=== PATIENT | female | born 1945 | race Caucasian/White ===

== ENCOUNTER 2024-10-09 04:09 | Inpatient (IN) | payer OTHER, SELFPAY ==
[2024-10-09] VITALS (15 sets, daily range): BP systolic 96–142; BP diastolic 52–89; PULSE 82–108; RESP 13–28; TEMP 36.2–37.9; O2SAT 92–100; BMI 33.9; BMI 32.7
--- NOTE | 2024-10-09 | ECG_ITS ---
Test Reason : WEAKNESS Blood Pressure : */* mmHG Vent. Rate : 102 BPM Atrial Rate : 102 BPM P-R Int : 146 ms QRS Dur : 72 ms QT Int : 350 ms P-R-T Axes : 43 -6 69 degrees QTcB Int : 456 ms Sinus tachycardia Nonspecific T wave abnormality Abnormal ECG No previous ECGs available Referred By: Generic ED Physician Electronically Signed By: ELODIA BURK MD
--- NOTE | ~2024-10-09 | XR_ITS ---
EXAMINATION: XR CHEST 1 VIEW HISTORY: bacteremia? COMPARISON: Correlation is made with a CT of the abdomen performed earlier in the day. FINDINGS: A single AP portable view of the chest performed at 7:15 AM is submitted. An opacity at the right lung base was previously shown to represent a hiatal hernia on CT. The remainder of the lungs are clear. There is no pleural effusion, pneumothorax, or pulmonary vascular congestion. The heart is normal in size. The aorta is calcified. There is degenerative disc disease of the spine. XR/XR chest 1V IMPRESSION: Large hiatal hernia. No focal airspace opacity is identified. Electronically signed by: Giancarlo Johnson MD 10/09/2024 08:02 AM EDT RP
--- NOTE | ~2024-10-09 | CT_ITS ---
CLINICAL HISTORY: Upper abdominal pain etiology?? CT abdomen and pelvis without contrast Comparison: None Findings: No consolidation or effusion. There is a large hiatal hernia. The solid organs are within normal limits. There is a gallstone. The gallbladder is otherwise unremarkable. No renal stones. No bowel obstruction, pneumoperitoneum, or pneumatosis. Pelvic contents unremarkable. The appendix is not visualized with no imaging evidence of appendicitis There is a T10 vertebral body compression fracture, acuity indeterminate. IMPRESSION: 1. T10 vertebral body compression fracture, acuity indeterminate. If patient is felt to be a candidate for intervention such as augmentation procedure, consider MR to further evaluate. 2. Large hiatal hernia. This document has been electronically signed by: Camden Marinelli MD on 10/09/2024 07:02:43
[2024-10-09 04:52] LABS: Basophils Percent Auto 0.1 % (0-2); Hematocrit 29.7 % (37.0-47.0); Hemoglobin 10.1 g/dl (12.0-16.0); Imm Gran Abs Auto 0.18 X10*3/uL (0.00-0.03); Imm Gran Pct Auto 0.8 % (0.0-0.4); Lymphocytes Absolute Auto 1.5 X10*3/uL (1.2-4.9); Lymphocytes Percent Auto 6.8 % (20-40); MANUAL DIFF FLAG NO; Mean Corpuscular Hemoglobin 26.4 pg (27.0-33.0); Mean Corpuscular Volume 77.5 fL (80.0-98.0); Monocytes Absolute Auto 1.3 X10*3/uL (0.1-1.2); Monocytes Percent Auto 5.8 % (2-11); Neutrophils Absolute Auto 19.4 x10*3/uL (2.0-8.3); Neutrophils Percent Auto 86.5 % (45-73); Platelet Count 342 X10*3/uL (160-400); Red Blood Count 3.83 X10*6/uL (4.20-5.50); Red Cell Distribution Width 13.9 % (11.0-16.0); White Blood Count 22.4 X10*3/uL (4.8-10.8)
[2024-10-09 04:58] LABS: INTERNATIONAL NORM RATIO 1.1 (0.9-1.1); Prothrombin Time 12.9 SEC (10.9-12.4)
--- NOTE | 2024-10-09 05:05 | ED_ITS ---
HPI - General Adult General Chief complaint: GI Bleed Stated complaint: Vomiting dark black coffee grounds since Wednesday Time Seen by Provider: 10/09/24 05:05 Source: patient Mode of arrival: EMS Limitations: no limitations History of Present Illness ED Provider: HPI narrative: Patient's history of arthritis, hiatal hernia on Celebrex otherwise healthy no history of any abdominal complaints or ulcer been vomiting for last 2 days multiple times which is coffee colored with mild epigastric pain no diarrhea no melena no shortness a breath no fever does have some chills no urinary symptoms Related Data Allergies Allergy/AdvReac Type Severity Reaction Status Date / Time amoxicillin Allergy Unknown Verified 10/09/24 04:32 Sulfa (Sulfonamide Allergy Unknown Verified 10/09/24 04:32 Antibiotics) Review of Systems 2 Review of Systems: Yes all other systems are reviewed and are negative [facility] Social History Social History Smoked in Last 30 Days: No Use of substances other than those prescribed or required for medical reasons: No Advance Directives: No Advance Directives Information Provided: Yes Physical Exam ED Vital Signs: Vital Signs - 24 hr 10/09/24 04:21 10/09/24 04:30 10/09/24 05:46 Temperature 99.4 F 99.0 F Pulse Rate 103 H 82 101 H Respiratory Rate 21 H 16 28 H Blood Pressure 110/70 111/70 119/83 Pulse Oximetry 97 100 Oxygen Delivery Method Room Air Room Air 10/09/24 06:31 Temperature 100.2 F Pulse Rate 108 H Respiratory Rate 17 Blood Pressure 128/89 Pulse Oximetry 96 Oxygen Delivery Method Room Air BMI result Body Mass Index 33.9 Appearance: Alert. Oriented X3. No acute distress. Eyes: PERRLA, No Nystagmus ENT: Pharynx normal. Oral Mucosa Dry Neck: Normal inspection. Neck supple. CVS: Normal heart rate and rhythm. Pulses normal. Respiratory: No respiratory distress. Equal air entry bilateral, no wheezing/rales/rhonchi Abdomen: Soft and mild tenderness right upper quadrant and epigastric area. Bowel sounds are present, no mass palpable, no CVA tenderness rectal: Brown stool guaiac negative Skin: Skin warm and dry. Normal skin color. Normal skin turgor. Extremities: No lower extremity edema. No calf tenderness Neuro: Oriented X 3. No motor deficit. No sensory deficit.No cerebellar signs , cranial nerves II-XII intact Medications Administered Discontinued Medications Generic Name Dose Route Start Last Admin Trade Name Janes PRN Reason Stop Dose Admin Ceftriaxone Sodium 1 gm 10/09/24 05:15 10/09/24 05:36 Ceftriaxone Sodium 1 Gm Vial IVPUSH 10/09/24 05:16 1 gm ONCE ONE Administration Sodium Chloride 1,000 mls @ 999 mls/hr 10/09/24 05:06 10/09/24 06:28 Ns IV 10/09/24 06:06 Infused .Q1H1M ONE Infusion Sodium Chloride 1,000 mls @ 999 mls/hr 10/09/24 05:52 10/09/24 06:28 Ns IV 10/09/24 06:52 999 mls/hr .Q1H1M ONE Administration Potassium Chloride 10 meq in 100 mls @ 100 mls/hr 10/09/24 05:52 10/09/24 06:26 Potassium Chloride/H20 IV 10/09/24 06:51 100 mls/hr ONCE ONE Administration Ondansetron HCl 4 mg 10/09/24 05:06 10/09/24 05:37 Ondansetron Hcl 4 Mg/2 Ml Vial IVPUSH 10/09/24 05:07 4 mg ONCE ONE Administration Pantoprazole Sodium 80 mg 10/09/24 05:13 10/09/24 05:37 Pantoprazole Sodium 40 Mg/10 Ml Vial IVPUSH 10/09/24 05:14 80 mg ONCE ONE Administration Medical Decision Making Medical Decision Making [facility] Narrative: Patient with history of heart rate is and hiatal hernia comes here for coffee colored vomiting for last 2 days , rectal exam negative for Hemoccult CT scan was done which showed the single gallstone without any inflammatory changes final report is pending patient is signed out Dr. Zamarripa pending final diagnose and dispo Differential Diagnosis Differential Diagnoses: The differential diagnosis associated with the presentation includes Gastritis/pancreatitis/cholecystitis/UTI/bacteremia Admission/Observation Consideration of admission/observation: Escalation of care including admission/observation considered Lab Data [facility] Lab Attestation statement: I reviewed the patient's lab results. 10/09/24 04:45 10/09/24 04:45 Labs: Lab Results 10/09/24 10/09/24 10/09/24 Range/Units 04:45 05:17 05:59 WBC 22.4 H (4.8-10.8) X10*3/uL RBC 3.83 L (4.20-5.50) X10*6/uL Hgb 10.1 L (12.0-16.0) g/dl Hct 29.7 L (37.0-47.0) % MCV 77.5 L (80.0-98.0) fL MCH 26.4 L (27.0-33.0) pg MCHC 34.0 (31.0-35.0) g/dl RDW 13.9 (11.0-16.0) % Plt Count 342 (160-400) X10*3/uL MPV 10.0 (9.4-12.3) fL Immature Gran % (Auto) 0.8 H (0.0-0.4) % Neut % (Auto) 86.5 H (45-73) % Lymph % (Auto) 6.8 L (20-40) % [place] % (Auto) 5.8 (2-11) % Eos % (Auto) 0.0 (0-4) % Baso % (Auto) 0.1 (0-2) % Lymph # (Auto) 1.5 (1.2-4.9) X10*3/uL [place] # (Auto) 1.3 H (0.1-1.2) X10*3/uL Eos # (Auto) 0.0 (0.0-0.4) X10*3/uL Baso # (Auto) 0.0 (0.0-0.2) X10*3/uL Abs Immat Gran (auto) 0.18 H (0.00-0.03) X10*3/uL Absolute Neuts (auto) 19.4 H (2.0-8.3) x10*3/uL Absolute Nucleated RBC 0.000 (0.0-0.012) X10*3/uL Nucleated RBC % (auto) 0.0 (0.0-0.2) /100WBC PT 12.9 H (10.9-12.4) SEC INR 1.1 (0.9-1.1) Sodium 136 (135-145) mmol/L Potassium 3.1 L (3.3-5.1) mmol/L Chloride 92 L (96-108) mmol/L Carbon Dioxide 27 (22-29) mmol/L Anion Gap 20 (12-20) BUN 70 H (9-16) mg/dL Creatinine 1.54 H (0.5-1.4) mg/dL Estim Creat Clear Calc 35.5 Estimated GFR 33 Random Glucose 143 H (60-115) mg/dL Lactic Acid 3.4 H* (0.5-2.0) mmol/L Calcium 9.3 (8.4-10.2) mg/dL Total Bilirubin 0.4 (0.0-1.0) mg/dL AST 26 (5-31) U/L ALT 14 (0-31) U/L Alkaline Phosphatase 28 L (39-117) U/L Troponin I High Sens 86.8 H* (<3.5-17.0) ng/L Total Protein 7.0 (6.5-8.0) g/dL Albumin 4.0 (3.5-5.0) g/dL Urine Color Yellow Urine Appearance Turbid Urine pH 6.0 (5.0-9.0) Ur Specific [place] 1.015 (1.005-1.025) Urine Protein 30 (1+) H (Neg-Trace) mg/dL Urine Glucose (UA) Negative (Negative) mg/dL Urine Ketones Negative (Negative) mg/dL Urine Blood Small (1+) H (Negative) Urine Nitrite Negative (Negative) Ur Leukocyte Esterase Negative (Negative) Urine RBC 0-2 (0-2) /HPF Urine WBC 0-5 (0-5) /HPF Ur Squamous Epith Cells 0-2 (0-2) /HPF Urine Bacteria None Seen (None Seen) Hyaline Casts 6-10 (0-2) /LPF Granular Casts Present Stool Occult Blood (NEGATIVE) 10/09/24 Range/Units 06:11 WBC (4.8-10.8) X10*3/uL RBC (4.20-5.50) X10*6/uL Hgb (12.0-16.0) g/dl Hct (37.0-47.0) % MCV (80.0-98.0) fL MCH (27.0-33.0) pg MCHC (31.0-35.0) g/dl RDW (11.0-16.0) % Plt Count (160-400) X10*3/uL MPV (9.4-12.3) fL Immature Gran % (Auto) (0.0-0.4) % Neut % (Auto) (45-73) % Lymph % (Auto) (20-40) % [place] % (Auto) (2-11) % Eos % (Auto) (0-4) % Baso % (Auto) (0-2) % Lymph # (Auto) (1.2-4.9) X10*3/uL [place] # (Auto) (0.1-1.2) X10*3/uL Eos # (Auto) (0.0-0.4) X10*3/uL Baso # (Auto) (0.0-0.2) X10*3/uL Abs Immat Gran (auto) (0.00-0.03) X10*3/uL Absolute Neuts (auto) (2.0-8.3) x10*3/uL Absolute Nucleated RBC (0.0-0.012) X10*3/uL Nucleated RBC % (auto) (0.0-0.2) /100WBC PT (10.9-12.4) SEC INR (0.9-1.1) Sodium (135-145) mmol/L Potassium (3.3-5.1) mmol/L Chloride (96-108) mmol/L Carbon Dioxide (22-29) mmol/L Anion Gap (12-20) BUN (9-16) mg/dL Creatinine (0.5-1.4) mg/dL Estim Creat Clear Calc Estimated GFR Random Glucose (60-115) mg/dL Lactic Acid (0.5-2.0) mmol/L Calcium (8.4-10.2) mg/dL Total Bilirubin (0.0-1.0) mg/dL AST (5-31) U/L ALT (0-31) U/L Alkaline Phosphatase (39-117) U/L Troponin I High Sens (<3.5-17.0) ng/L Total Protein (6.5-8.0) g/dL Albumin (3.5-5.0) g/dL Urine Color Urine Appearance Urine pH (5.0-9.0) Ur Specific [place] (1.005-1.025) Urine Protein (Neg-Trace) mg/dL Urine Glucose (UA) (Negative) mg/dL Urine Ketones (Negative) mg/dL Urine Blood (Negative) Urine Nitrite (Negative) Ur Leukocyte Esterase (Negative) Urine RBC (0-2) /HPF Urine WBC (0-5) /HPF Ur Squamous Epith Cells (0-2) /HPF Urine Bacteria (None Seen) Hyaline Casts (0-2) /LPF Granular Casts Stool Occult Blood NEGATIVE (NEGATIVE) Independent Interpretation I performed an independent interpretation of an: EKG and CT Scan Interpretation: Sinus tachycardia heart rate on O2 beats per minute normal interval normal axis no acute STT wave changes no acute ischemia Discharge Plan Discharge Clinical Impression: Vomiting, Acidosis, lactic, Acute renal failure Patient Disposition: Still a Patient Print Language: Croatian
[2024-10-09 05:07] LABS: Alanine Aminotransferase 14 U/L (0-31); Alkaline Phosphatase 28 U/L (39-117); Anion Gap 20 (12-20); Aspartate Amino Transferase 26 U/L (5-31); Bilirubin Total 0.4 mg/dL (0.0-1.0); Blood Urea Nitrogen 70 mg/dL (9-16); Calcium 9.3 mg/dL (8.4-10.2); Carbon Dioxide 27 mmol/L (22-29); Chloride 92 mmol/L (96-108); Creatinine Clr Calc Pharmacy 35.5; Estimated Glomerular Filt Rate 33; Glucose Random 143 mg/dL (60-115); Potassium 3.1 mmol/L (3.3-5.1); Sodium 136 mmol/L (135-145)
[2024-10-09 05:16] LABS: Troponin-I High Sensitivity 86.8 ng/L (<3.5-17.0)
[2024-10-09] MEDS: 0.9 % Sodium Chloride 1,000 ML 999 ML IV ×2 (05:18→06:28)
[2024-10-09] MEDS: cefTRIAXone sodium 1 GM VIAL IVPUSH (05:36)
[2024-10-09] MEDS: Pantoprazole Sodium 40 MG/10 ML VIAL 80 MG IVPUSH (05:37)
[2024-10-09] MEDS: ondansetron HCL 4 MG/2 ML VIAL IVPUSH (05:37)
[2024-10-09 05:42] LABS: Lactic Acid 3.4 mmol/L (0.5-2.0)
[2024-10-09 06:10] LABS: Appearance Urine Turbid; Color Urine Yellow; Glucose Urine UA Negative (Negative); Leukocyte Esterase Urine Negative (Negative); Nitrite Urine Negative (Negative); Specific Gravity - Urine 1.015 (1.005-1.025); UMIC TRIGGER UACC YES; Urine Blood Small (1+) (Negative); Urine Ketones Negative (Negative); Urine Protein 30 (1+) mg/dL (Neg-Trace)
[2024-10-09 06:14] LABS: OBS Int Ctl Valid YES; OBS1 NEGATIVE (NEGATIVE)
[2024-10-09 06:20] LABS: Bacteria Urine None Seen (None Seen); Granular Casts Urine Present; RBC Urine 0-2 /HPF (0-2); Squamous Epithelial Cell Urine 0-2 /HPF (0-2); WBC Urine 0-5 /HPF (0-5)
[2024-10-09] MEDS: Potassium Chloride/H20 10 MEQ/100 ML PIGGYBACK 100 MEQ IV (06:26)
--- NOTE | 2024-10-09 07:20 | PC.NURSE ---
pt is alert and oriented, skin warm to touch- pt does have a fever off 100.2 core temp, respirations even and unlabored, pt denies pain at this time just reports feeling very tired/weak, pt reports vomiting coffee grounds at home- no vomiting in the ED since her arrival, amato was placed by previous shift and draining well, ns on the monitor
[2024-10-09 07:23] LABS: Reflex Lactate? Lactic Acid Added
[2024-10-09 07:23] LABS: Lipase 6 U/L (8-78)
[2024-10-09] MEDS: Acetaminophen 1,000 MG/100 ML PIGGYBACK 400 MG IV (07:50)
[2024-10-09 08:10] LABS: ~Lactic Acid-LAB USE ONLY 2.7 mmol/L (0.5-2.0)
[2024-10-09 08:13] LABS: Troponin-I High Sensitivity 83.5 ng/L (<3.5-17.0)
[2024-10-09 08:29] LABS: Influenza A PCR NEGATIVE (Negative); Influenza B PCR NEGATIVE (Negative); Resp Syncy Virus RNA Qual PCR NEGATIVE (Negative); SARS COV2 PCR INHOUSE NEGATIVE (Negative)
[2024-10-09 09:49] LABS: Reflex Lactate? 2 Y
--- NOTE | 2024-10-09 10:21 | P.HPHOSP_ITS ---
History of Present Illness Date of Service: 10/09/24 Attending physician on admission: [facility] Chief Complaint: n/v, coffee ground emesis 79-year-old female with history of mild intermittent asthma, osteoporosis, urge incontinence, hypertension, GERD, hyperlipidemia presented to the ED with nausea, vomiting ongoing since yesterday. Her niece, Tawnya, is present at bedside who reports the vomitus was dark brown with coffee-ground appearance. No bright red blood. She denies any fevers, chills at home. No abdominal pain, diarrhea, constipation, melena, hematochezia. No urinary symptoms. She is noted to have a dry cough on exam which he states has not been persistent and feels this is related to dry throat. Since arrival, she has had a low-grade temperature of 100.2 degrees and has been tachycardic to 104 and intermittently tachypneic. She has leukocytosis of 22.4 H/H 10.1/29.7. Creatinine 1.54, baseline unknown, BUN 70. Potassium 3.1, chloride 92, initial lactic acid 3.4, repeat 2.7. Initial troponin 86.8, repeat 83.5. Urinalysis not indicative of infection. Negative for COVID, flu, RSV. CXR shows a large hiatal hernia but no focal airspace opacity. CT of the abdomen pelvis shows a T10 vertebral body compression fracture, acuity indeterminate. In the ED, has received IV NS, 80 mg IV ppi, IV Tylenol, 1 g ceftriaxone, ondansetron, and 40 mEq IV potassium. Review of Systems 2 Review of Systems: Yes all other systems are reviewed and are negative [facility] Medical History (Updated 10/09/24 @ 10:31 by GRACE Boudreaux) Hyperlipidemia GERD (gastroesophageal reflux disease) Hypertension Urge incontinence Osteoarthritis Asthma Hiatal hernia Social History Smoked in Last 30 Days: No Use of substances other than those prescribed or required for medical reasons: No Advance Directives: No Advance Directives Information Provided: Yes Meds Allergies Allergy/AdvReac Type Severity Reaction Status Date / Time amoxicillin Allergy Unknown Verified 10/09/24 04:32 Sulfa (Sulfonamide Allergy Unknown Verified 10/09/24 04:32 Antibiotics) Active Medications: Current Medications Acetaminophen (Acetaminophen 325 Mg Tablet) 650 mg PO Q6H PRN PRN Reason: Pain, Mild 1-3,fever,headache Calcium Carbonate (Calcium Carbonate 750 Mg Tab.Chew) 750 mg PO Q4H PRN PRN Reason: Heartburn Ceftriaxone Sodium (Ceftriaxone Sodium 1 Gm Vial) 1 gm IVPUSH Q24H [facility] Lactated Ringer's (Lr) 1,000 mls @ 100 mls/hr IVCONT .Q10H [facility] Metronidazole (Flagyl) 500 mg in 100 mls @ 100 mls/hr IV Q8H [facility] Magnesium Hydroxide (Milk Of Magnesia 30 Ml Oral.Susp) 30 ml PO DAILY PRN PRN Reason: Constipation Melatonin (Melatonin 3 Mg Tablet) 6 mg PO BEDTIME PRN PRN Reason: Insomnia Pantoprazole Sodium (Pantoprazole Sodium 40 Mg/10 Ml Vial) 40 mg IVPUSH BID@0630,1630 [facility] Sodium Chloride (0.9 % Sodium Chloride Flush 3 Ml Syringe) 3 ml IVFLUSH QSHIFT [facility] Home Medications ?Medication ?Instructions ?Recorded ?Confirmed ?Last Taken ?Type albuterol sulfate 90 mcg/actuation 2 puff inhalation QID PRN wheezing 10/09/24 10/09/24 Unknown History aerosol inhaler calcium 600 mg (as 1 tab PO DAILY 10/09/24 10/09/24 Unknown History carbonate)-vitamin D3 5 mcg (200 unit) tablet celecoxib 100 mg capsule (Celebrex) 100 mg PO BID 10/09/24 10/09/24 10/07/24 History cholecalciferol (vitamin D3) 50 50 mcg PO DAILY 10/09/24 10/09/24 10/07/24 History mcg (2,000 unit) tablet (Vitamin D3) glucosamine sulfate 750 mg tablet 1,500 mg PO DAILY 10/09/24 10/09/24 Unknown History hydrochlorothiazide 25 mg tablet 25 mg PO DAILY 10/09/24 10/09/24 10/07/24 History losartan 50 mg tablet 50 mg PO DAILY 10/09/24 10/09/24 10/07/24 History multivitamin 1 tab PO DAILY 10/09/24 10/09/24 Unknown History omeprazole 20 mg capsule,delayed 20 mg PO DAILY@0630 10/09/24 10/09/24 10/07/24 History release oxybutynin chloride 15 mg 15 mg PO BEDTIME 10/09/24 10/09/24 10/07/24 History tablet,extended release 24 hr psyllium 1 packet PO DAILY 10/09/24 10/09/24 Unknown History simvastatin 20 mg tablet 20 mg PO BEDTIME 10/09/24 10/09/24 10/07/24 History tizanidine 4 mg tablet 4 mg PO TID PRN Back Pain 10/09/24 10/09/24 Unknown History vibegron 75 mg tablet (Gemtesa) 75 mg PO BEDTIME 10/09/24 10/09/24 Unknown History Physical Exam 2 Vital Signs and Narrative: Vital Signs: Last Vital Signs Temp 99.9 F 10/09/24 09:27 Pulse 104 H 10/09/24 09:27 Resp 13 10/09/24 09:27 BP 132/56 L 10/09/24 09:27 Pulse Ox 98 10/09/24 09:27 O2 Del Method Room Air 10/09/24 09:27 BMI result Body Mass Index 33.9 Constitutional - Awake and fatigued, No apparent distress Eyes - PERRLA, EOMI Cardiovascular - S1S2, RRR, No edema Respiratory - Normal lung expansion, Normal respiratory effort, No respiratory distress, CTA bilaterally Gastrointestinal - NT / ND; +BS; No rebound or guarding Extremities - no calf tenderness bilaterally, no swelling Skin - Warm/Dry. Lips dry Neurological - Alert & oriented x3 Psychological - Appropriate affect Results Labs 10/09/24 10:40 10/09/24 04:45 Labs: Laboratory Results - last 24 hr 10/09/24 10/09/24 10/09/24 04:45 05:17 05:59 MCV 77.5 L MCH 26.4 L MCHC 34.0 RDW 13.9 Plt Count 342 MPV 10.0 Immature Gran % (Auto) 0.8 H Neut % (Auto) 86.5 H Lymph % (Auto) 6.8 L [place] % (Auto) 5.8 Eos % (Auto) 0.0 Baso % (Auto) 0.1 Lymph # (Auto) 1.5 [place] # (Auto) 1.3 H Eos # (Auto) 0.0 Baso # (Auto) 0.0 Abs Immat Gran (auto) 0.18 H Absolute Neuts (auto) 19.4 H Absolute Nucleated RBC 0.000 Nucleated RBC % (auto) 0.0 PT 12.9 H INR 1.1 Anion Gap 20 Estim Creat Clear Calc 35.5 Estimated GFR 33 Random Glucose 143 H Lactic Acid 3.4 H* Lactic Acid F/U @ 2Hr Calcium 9.3 Total Bilirubin 0.4 AST 26 ALT 14 Alkaline Phosphatase 28 L Total Protein 7.0 Albumin 4.0 Lipase 6 L Urine Color Yellow Urine Appearance Turbid Urine pH 6.0 Ur Specific [place] 1.015 Urine Protein 30 (1+) H Urine Glucose (UA) Negative Urine Ketones Negative Urine Blood Small (1+) H Urine Nitrite Negative Ur Leukocyte Esterase Negative Urine RBC 0-2 Urine WBC 0-5 Ur Squamous Epith Cells 0-2 Urine Bacteria None Seen Hyaline Casts 6-10 Granular Casts Present Stool Occult Blood Influenza Type A (PCR) Influenza Type B (PCR) RSV RNA Qual (PCR) SARS-CoV-2 RNA (RT-PCR) 10/09/24 10/09/24 06:11 07:44 MCV MCH MCHC RDW Plt Count MPV Immature Gran % (Auto) Neut % (Auto) Lymph % (Auto) [place] % (Auto) Eos % (Auto) Baso % (Auto) Lymph # (Auto) [place] # (Auto) Eos # (Auto) Baso # (Auto) Abs Immat Gran (auto) Absolute Neuts (auto) Absolute Nucleated RBC Nucleated RBC % (auto) PT INR Anion Gap Estim Creat Clear Calc Estimated GFR Random Glucose Lactic Acid Lactic Acid F/U @ 2Hr 2.7 H* Calcium Total Bilirubin AST ALT Alkaline Phosphatase Total Protein Albumin Lipase Urine Color Urine Appearance Urine pH Ur Specific [place] Urine Protein Urine Glucose (UA) Urine Ketones Urine Blood Urine Nitrite Ur Leukocyte Esterase Urine RBC Urine WBC Ur Squamous Epith Cells Urine Bacteria Hyaline Casts Granular Casts Stool Occult Blood NEGATIVE Influenza Type A (PCR) NEGATIVE Influenza Type B (PCR) NEGATIVE RSV RNA Qual (PCR) NEGATIVE SARS-CoV-2 RNA (RT-PCR) NEGATIVE Imaging Radiologist's Impressions: Impressions Chest X-Ray 10/09/24 06:58 IMPRESSION: Large hiatal hernia. No focal airspace opacity is identified. Electronically signed by: Giancarlo Johnson MD 10/09/2024 08:02 AM EDT Assessment and Plan (1) Acute renal failure: Status: Acute (2) Acidosis, lactic: Status: Acute (3) Vomiting: Status: Acute Plan 79-year-old female with history of mild intermittent asthma, osteoporosis, urge incontinence, hypertension, GERD, hyperlipidemia admitted for UGIB with n/v and aspiration pneumonia Acute UGIB with nausea/vomiting and acute blood loss anemia chronic use of celebrex. No thinners. Hold Celebrex stool occult blood negative IV PPI NPO except clear sips/ice chips GI consult antiemetics prn Repeat h/h now. follow h/h closely, keep hgb >7.0 Acute aspiration with early pneumonia and sepsis Leukocytosis 22, tachycardic. Lactic acidosis likely related to hypoperfusion from hypo volemia/GI losses. No severe sepsis/shock IV ceftriaxone and Flagyl Sputum culture, Legionella antigen, strep pneumo antigen Aspiration precautions Follow CBC, cultures Acute lactic acidosis Initial 3.4, repeat 2.7, repeat 1.3 Continue IVF Acute kidney injury-likely prerenal related to hypoperfusion from hypovolemia Creatinine 1.54, baseline unknown though suspect underlying CKD unspecified stage Continue IVF as above Avoid nephrotoxins Monitor I&O Follow renal function, electrolyte levels Acute hypokalemia in setting of above repleted, follow lytes Mild Intermittent asthma Albuterol p.r.n. Hypertension Hold losartan, hydrochlorothiazide in setting of DEANNE Blood pressure is currently reasonably controlled. Monitor closely GERD PPI as above Urge incontinence Oxybutynin/Gemtesa HLD Statin DVT prophylaxis- SCPs Full code Pt requires inpt stay at [facility] 2 midnights for management of UGIB requiring expert consultation and closemonitoring of hemodyanamics to monitor for and presvent demopensation Quality Stroke Does the patient have a stroke diagnosis?: No VTE Prior VTE?: No VTE Risk Level:: Medical - moderate - high VTE Device Contraindication: N/A - Device Ordered VTE Drug Contraindication: Treatment Not Indicated
--- NOTE | 2024-10-09 10:28 | PHA.MEDREC ---
Pharmacy Consult ? Medication Reconciliation Pharmacy has completed the medication reconciliation.Med rec complete, spoke to patient and compared with pharmacy claim history
[2024-10-09 10:36] LABS: ~Lactic Acid-LAB USE ONLY 1.3 mmol/L (0.5-2.0)
[2024-10-09] MEDS: Lactated Ringers 1,000 ML 100 ML IVCONT ×2 (10:43→19:54)
[2024-10-09] MEDS: metroNIDAZOLE/NS 500 MG/100 ML PIGGYBACK 100 MG IV ×2 (10:43→17:59)
[2024-10-09 10:50] LABS: Hematocrit 26.8 % (37.0-47.0); Hemoglobin 8.8 g/dl (12.0-16.0)
--- NOTE | 2024-10-09 11:10 | PC.NURSE ---
Report received at this time. Taken over care.
[2024-10-09] MEDS: Acetaminophen 325 MG TABLET 650 MG PO (13:28)
[2024-10-09] MEDS: TiZANidine HCL 4 MG TABLET PO (13:29)
[2024-10-09] MEDS: Pantoprazole Sodium 40 MG/10 ML VIAL IVPUSH (16:15)
[2024-10-09] MEDS: 0.9 % Sodium Chloride Flush 3 ML SYRINGE IVFLUSH (16:16)
--- NOTE | 2024-10-09 19:53 | MHC.SHP ---
Pre-Procedural Eval Section A - 24 Hr Update-Section A only Date of Service: 10/09/24 The patient is an INPATIENT: Yes The patient has been examined within 24 hours of the surgical procedure. The History & Physical has been completed within 30 days and I have reviewed it.: Yes Section B - Complete if H&P > 30 days Chief Complaint: N/V, UGIB, aspiration/sepsis Allergies: Allergies Allergy/AdvReac Type Severity Reaction Status Date / Time amoxicillin Allergy Unknown Verified 10/09/24 04:32 Sulfa (Sulfonamide Allergy Unknown Verified 10/09/24 04:32 Antibiotics) Plan I have reviewed the history and physical and performed a pertinent physical examination on my patient. No changes have occurred unless specified. Time Spent With Patient Time: Total time managing care of this patient today ____ minutes.
--- NOTE | 2024-10-09 19:53 | PM.EVENT ---
Event Note Date of Service: 10/09/24 Event Note: GI Consult-Full note dictated Imp: UGI bleed, hiatal hernia anemia Diff dx: Shy-Dominguez tear, gastritis, esophagitis, PUD Rec: EGD with MAC-full consent has been obtained from her for this, including risks of bleeding and perforation. I will schedule her tentatively for 10/10 pending her medical status and nedical clearance. Continue her IV PPI, F/U Hgb, transfuse PRN. Thanks Time Spent With Patient Time: Total time managing care of this patient today ____ minutes.
[2024-10-09] MEDS: Atorvastatin Calcium 10 MG TABLET PO (19:55)
[2024-10-09] MEDS: oxyBUTYnin chloride ER 5 MG TAB.ER.24 15 MG PO (19:55)
[2024-10-09] MEDS: VIBEGRON 75 MG 75 EACH PO (19:56)
[2024-10-10] VITALS (20 sets, daily range): BP systolic 115–188; BP diastolic 51–80; PULSE 80–97; RESP 16–20; TEMP 36.7–37.7; O2SAT 94–100
[2024-10-10] MEDS: metroNIDAZOLE/NS 500 MG/100 ML PIGGYBACK 100 MG IV ×2 (02:51→18:10)
--- NOTE | 2024-10-10 03:23 | CONS_ITS ---
DATE OF SERVICE: 10/09/2024 REASON FOR CONSULTATION: Coffee-grounds emesis and anemia. HISTORY OF PRESENT ILLNESS: This has been obtained from the patient, her nurse, and the medical record. The patient is a 79-year-old female who describes being in her usual state of health up until about 2 days ago, when she developed some nausea and vomiting after eating dinner. The vomitus was rather dark, but without any hematemesis. Due to her persistent symptoms, she came to the ER. She was found to be anemic with a hemoglobin of 10.1, which dropped to 8.8. Since being admitted, she has had no further vomiting and does feel somewhat better. She denies any abdominal pain. She is on Celebrex, but denies any other use of aspirin or other NSAIDs. She does not smoke nor use any alcohol. She does have a known hiatal hernia and takes Prilosec daily by her report. She has not noticed any melena nor hematochezia. She denies any previous history of ulcer disease nor GI bleeding. She thinks she may have had an upper endoscopy many years ago. MEDICATIONS: At home included albuterol inhaler, calcium carbonate, Celebrex, vitamin D, glucosamine, hydrochlorothiazide, losartan, vitamins, omeprazole, oxybutynin, Metamucil, simvastatin, tizanidine, and Gemtesa. PAST MEDICAL HISTORY: Hiatal hernia for which she is on omeprazole. Known hiatal hernia. Hypertension. Hyperlipidemia. She denies history of [place], diabetes, stroke, lung disease or kidney disease. She has had bilateral knee replacements, removal of an ovarian cyst, and appendectomy. She denies any other significant surgeries that she can recall. SOCIAL HISTORY: She lives by herself. As above. FAMILY HISTORY: Noncontributory. REVIEW OF SYSTEMS: CONSTITUTIONAL: She has been feeling well up until 2 days ago. CARDIAC: No chest pain. PULMONARY: No cough, hemoptysis. GI: As above. URINARY: No dysuria, no hematuria. NEUROLOGIC: No headache or seizures. PHYSICAL EXAMINATION: GENERAL: The patient is a pleasant, alert, comfortable-appearing female. SKIN: Warm and dry. HEENT: Anicteric sclerae. NECK: Supple. CHEST: Clear. CARDIAC: Normal S1, S2. ABDOMEN: Soft. Normal bowel sounds. Nondistended, nontender. LABORATORY DATA: As above. Initial white blood cell count was 22.4. Initial hemoglobin was 10.1 with MCV of 78. Platelets 342,000. PT 12.9 with INR 1.1. Sodium 136, potassium 3.1, BUN 70, creatinine 1.5. Lactic acid level was 3.4, which dropped to 1.3. Normal LFTs. Lipase is 6. CT of the abdomen and pelvis describes vertebral body compression fracture in T10. Large hiatal hernia. Chest x-ray was negative for pneumonia or CHF. IMPRESSION: Given the patient's clinical history of vomiting with a known large hiatal hernia and subsequent coffee-grounds emesis, this may represent bleeding from the Shy-Dominguez tear or some gastritis, and/or esophagitis. Another possibility would be that of peptic ulcer disease, although I think that would be less likely. She does have a microcytic anemia and may have some chronic blood loss going on from her large hiatal hernia and/or gastritis. At this point, she appears stable. I would recommend eventual upper endoscopy once she is cleared medically from a cardiopulmonary standpoint. Full consent obtained from her for that, including risks of bleeding and perforation. I shall tentatively schedule her for tomorrow assuming she is cleared for the procedure. If not, we could then do it later in the week as long she otherwise remained stable and does not need a more urgently from a GI bleeding standpoint. In the meantime, I will continue the IV pantoprazole and follow her hemoglobin. This has all been discussed in detail with her and she is comfortable with the plan. Thanks for the consultation. MD OWEN Ledezma/FAUSTO / [phone]
[2024-10-10] MEDS: Pantoprazole Sodium 40 MG/10 ML VIAL IVPUSH ×2 (05:41→17:59)
[2024-10-10] MEDS: Lactated Ringers 1,000 ML 100 ML IVCONT ×4 (05:41→20:58)
[2024-10-10] MEDS: cefTRIAXone sodium 1 GM VIAL IVPUSH (05:41)
[2024-10-10 07:51] LABS: MANUAL DIFF FLAG NO
[2024-10-10 08:00] LABS: Basophils Percent Auto 0.3 % (0-2); Eosinophils Percent Auto 0.2 % (0-4); Hematocrit 21.1 % (37.0-47.0); Imm Gran Abs Auto 0.06 X10*3/uL (0.00-0.03); Imm Gran Pct Auto 0.5 % (0.0-0.4); Lymphocytes Absolute Auto 1.7 X10*3/uL (1.2-4.9); Lymphocytes Percent Auto 13.7 % (20-40); Mean Corpuscular HGB Conc 32.7 g/dl (31.0-35.0); Mean Corpuscular Hemoglobin 26.1 pg (27.0-33.0); Mean Corpuscular Volume 79.9 fL (80.0-98.0); Mean Platelet Volume 10.1 fL (9.4-12.3); Monocytes Absolute Auto 1.2 X10*3/uL (0.1-1.2); Monocytes Percent Auto 9.7 % (2-11); Neutrophils Absolute Auto 9.2 x10*3/uL (2.0-8.3); Neutrophils Percent Auto 75.6 % (45-73); Platelet Count 220 X10*3/uL (160-400); Red Blood Count 2.64 X10*6/uL (4.20-5.50); Red Cell Distribution Width 14.4 % (11.0-16.0); White Blood Count 12.2 X10*3/uL (4.8-10.8)
[2024-10-10 08:39] LABS: Hemoglobin 6.9 g/dl (12.0-16.0)
[2024-10-10 09:12] LABS: Potassium 2.9 mmol/L (3.3-5.1)
--- NOTE | 2024-10-10 09:29 | MHC.CM.PN ---
Pt. lives alone, she does not have home health services, fro DME she has a cane and a walker, and bars in bathroom. PCP is confirmed: Dr. Gretta Galloway. HCP is on file: lists Liang (he is ) and Giancarlo. Transport home by her son Giancarlo. DCP: home self care or with services. CM to follow for DC needs.
[2024-10-10 09:35] LABS: Anion Gap 11 (12-20); Blood Urea Nitrogen 25 mg/dL (9-16); Calcium 7.7 mg/dL (8.4-10.2); Carbon Dioxide 26 mmol/L (22-29); Chloride 104 mmol/L (96-108); Creatinine Clr Calc Pharmacy 97.8; Estimated Glomerular Filt Rate > 60; Glucose Random 102 mg/dL (60-115); Sodium 138 mmol/L (135-145)
[2024-10-10 10:04] LABS: Magnesium 1.8 mg/dL (1.6-2.6)
[2024-10-10] MEDS: Potassium Chloride/H20 10 MEQ/100 ML PIGGYBACK 100 MEQ IV ×4 (12:14→18:23)
[2024-10-10] MEDS: Acetaminophen 1,000 MG/100 ML PIGGYBACK 400 MG IV (12:31)
--- NOTE | 2024-10-10 13:49 | PC.NURSE ---
pt potassium hanging but clamped off. Potassium IV restarted per Anesthesia. pt tolerating well at this time.
--- NOTE | 2024-10-10 14:28 | PC.NURSE ---
1400. report received from Nasima munoz at this time.
--- NOTE | 2024-10-10 14:35 | HO.ANESPROP2 ---
HPI - Anesthesia Eval Consult details Narrative: 79 yo female patient for EGD PMFSH Active Problems Active Problems: All Active Problems (Updated 10/09/24 @ 10:31 by GRACE Boudreaux) Severe sepsis (Acute) Acute renal failure (Acute) Acidosis, lactic (Acute) Vomiting (Acute) Past Medical History Medical History Hyperlipidemia GERD (gastroesophageal reflux disease) Hypertension Urge incontinence Osteoarthritis Asthma Hiatal hernia Family History Family history of problems with anesthesia: No Surgical History Surgical History (Updated 10/10/24 @ 17:15 by Charlene Ku MD) Ovarian cyst H/O foot surgery History of appendectomy History of ankle surgery History of left knee replacement History of total right knee replacement History of Problems with Anesthesia: No Social History Social History Household Members: None Housing: Other Housing Other:: home Do you presently have visiting nurse or other home services: No Patient Tobacco Use Status: Never used Tobacco Smoked in Last 30 Days: No Second Hand Smoke Exposure: No Use of substances other than those prescribed or required for medical reasons: No Currently Displaying Signs/Symptoms of Drug Intoxication Withdrawal: No Have you been hit, kicked, punched, or otherwise hurt by someone within the past year? If so, by whom?: No Do you feel safe in your current relationship?: No Current Relationship Is there a partner from a previous relationship who is making you feel unsafe now?: No Are you made to feel afraid or neglected: No Are you DNR?: No Advance Directives: No Advance Directives Information Provided: Yes Advance Directives on File: No Do you have a plan to hurt others: No Plan Recently lost weight without trying: No How much weight loss: Not applicable Eating poorly because of decreased appetite: No Nutrition screen score: 0 Nutrition Risks: No Nutritional Risk Patient : No : No Poor oral hygiene: No service: No Meds Allergies Allergy/AdvReac Type Severity Reaction Status Date / Time amoxicillin Allergy Unknown Verified 10/09/24 04:32 Sulfa (Sulfonamide Allergy Unknown Verified 10/09/24 04:32 Antibiotics) lisinopril [From Zestril] AdvReac Rash Verified 10/10/24 12:49 Active Medications: Current Medications Acetaminophen (Acetaminophen 325 Mg Tablet) 650 mg PO Q6H PRN PRN Reason: Pain, Mild 1-3,fever,headache Last Admin: 10/09/24 13:28 Dose: 650 mg Albuterol Sulfate (Albuterol Sulfate 90 Mcg 8 Gm Inhaler) 2 puff INHALE QID PRN PRN Reason: wheezing Atorvastatin Calcium (Atorvastatin Calcium 10 Mg Tablet) 10 mg PO BEDTIME [facility] Last Admin: 10/09/24 19:55 Dose: 10 mg Calcium Carbonate (Calcium Carbonate 750 Mg Tab.Chew) 750 mg PO Q4H PRN PRN Reason: Heartburn Calcium Carbonate/Cholecalciferol (Calcium + Vitamin D 250 Mg Tablet) 500 mg PO DAILY [facility] Last Admin: 10/10/24 08:53 Dose: Not Given Ceftriaxone Sodium (Ceftriaxone Sodium 1 Gm Vial) 1 gm IVPUSH Q24H [facility] Last Admin: 10/10/24 05:41 Dose: 1 gm Lactated Ringer's (Lr) 1,000 mls @ 100 mls/hr IVCONT .Q10H [facility] Last Admin: 10/10/24 05:41 Dose: 100 mls/hr Metronidazole (Flagyl) 500 mg in 100 mls @ 100 mls/hr IV Q8H [facility] Last Admin: 10/10/24 12:31 Dose: Not Given Lactated Ringer's (Lr) 1,000 mls @ 100 mls/hr IVCONT .Q10H [facility] Magnesium Hydroxide (Milk Of Magnesia 30 Ml Oral.Susp) 30 ml PO DAILY PRN PRN Reason: Constipation Melatonin (Melatonin 3 Mg Tablet) 6 mg PO BEDTIME PRN PRN Reason: Insomnia Pt Own Medication ( Vibegron [Gemtesa] 75 Mg Tablet) 75 mg PO BEDTIME [facility] Last Admin: 10/09/24 19:56 Dose: 75 mg Ondansetron HCl (Ondansetron Hcl 4 Mg/2 Ml Vial) 4 mg IVPUSH ONCE PRN PRN Reason: Nausea and Vomiting Stop: 10/10/24 20:34 Oxybutynin Chloride (Oxybutynin Chloride Er 5 Mg Tab.Er.24) 15 mg PO BEDTIME [facility] Last Admin: 10/09/24 19:55 Dose: 15 mg Pantoprazole Sodium (Pantoprazole Sodium 40 Mg/10 Ml Vial) 40 mg IVPUSH BID@0630,1630 [facility] Last Admin: 10/10/24 05:41 Dose: 40 mg Sodium Chloride (0.9 % Sodium Chloride Flush 3 Ml Syringe) 3 ml IVFLUSH QSHIFT [facility] Last Admin: 10/10/24 11:53 Dose: Not Given Tizanidine HCl (Tizanidine Hcl 4 Mg Tablet) 4 mg PO TID PRN PRN Reason: Back Pain Last Admin: 10/09/24 13:29 Dose: 4 mg Vitamin D (Cholecalciferol (Vitamin D3) 25 Mcg Tablet) 50 mcg PO DAILY [facility] Last Admin: 10/10/24 08:53 Dose: Not Given Home Medications ?Medication ?Instructions ?Recorded ?Confirmed ?Last Taken ?Type albuterol sulfate 90 mcg/actuation 2 puff inhalation QID PRN wheezing 10/09/24 10/09/24 Unknown History aerosol inhaler calcium 600 mg (as 1 tab PO DAILY 10/09/24 10/09/24 Unknown History carbonate)-vitamin D3 5 mcg (200 unit) tablet celecoxib 100 mg capsule (Celebrex) 100 mg PO BID 10/09/24 10/09/24 10/07/24 History cholecalciferol (vitamin D3) 50 50 mcg PO DAILY 10/09/24 10/09/24 10/07/24 History mcg (2,000 unit) tablet (Vitamin D3) glucosamine sulfate 750 mg tablet 1,500 mg PO DAILY 10/09/24 10/09/24 Unknown History hydrochlorothiazide 25 mg tablet 25 mg PO DAILY 10/09/24 10/09/24 10/07/24 History losartan 50 mg tablet 50 mg PO DAILY 10/09/24 10/09/24 10/07/24 History multivitamin 1 tab PO DAILY 10/09/24 10/09/24 Unknown History omeprazole 20 mg capsule,delayed 20 mg PO DAILY@0630 10/09/24 10/09/24 10/07/24 History release oxybutynin chloride 15 mg 15 mg PO BEDTIME 10/09/24 10/09/24 10/07/24 History tablet,extended release 24 hr psyllium 1 packet PO DAILY 10/09/24 10/09/24 Unknown History simvastatin 20 mg tablet 20 mg PO BEDTIME 10/09/24 10/09/24 10/07/24 History tizanidine 4 mg tablet 4 mg PO TID PRN Back Pain 10/09/24 10/09/24 Unknown History vibegron 75 mg tablet (Gemtesa) 75 mg PO BEDTIME 10/09/24 10/09/24 Unknown History Exam Height,Weight and Vital Signs: Height 5 ft 6 in Weight 92 kg Last Vital Signs Temp 98.2 F 10/10/24 14:00 Pulse 82 10/10/24 14:00 Resp 16 10/10/24 14:00 BP 121/57 L 10/10/24 14:00 Pulse Ox 99 10/10/24 13:37 O2 Del Method Room Air 10/10/24 13:37 Pertinent Lab Results Pertinent Lab Results: Laboratory Tests 10/09/24 10/09/24 10/09/24 04:45 05:17 05:59 WBC 22.4 H RBC 3.83 L Hgb 10.1 L Hct 29.7 L MCV 77.5 L MCH 26.4 L MCHC 34.0 RDW 13.9 Plt Count 342 MPV 10.0 Immature Gran % (Auto) 0.8 H Neut % (Auto) 86.5 H Lymph % (Auto) 6.8 L [place] % (Auto) 5.8 Eos % (Auto) 0.0 Baso % (Auto) 0.1 Lymph # (Auto) 1.5 [place] # (Auto) 1.3 H Eos # (Auto) 0.0 Baso # (Auto) 0.0 Abs Immat Gran (auto) 0.18 H Absolute Neuts (auto) 19.4 H Absolute Nucleated RBC 0.000 Nucleated RBC % (auto) 0.0 PT 12.9 H INR 1.1 Sodium 136 Potassium 3.1 L Chloride 92 L Carbon Dioxide 27 Anion Gap 20 BUN 70 H Creatinine 1.54 H Estim Creat Clear Calc 35.5 Estimated GFR 33 Random Glucose 143 H Lactic Acid 3.4 H* Lactic Acid F/U @ 2Hr Lactic Acid F/U @ 4Hr Calcium 9.3 Magnesium Total Bilirubin 0.4 AST 26 ALT 14 Alkaline Phosphatase 28 L Troponin I High Sens 86.8 H* Total Protein 7.0 Albumin 4.0 Lipase 6 L Urine Color Yellow Urine Appearance Turbid Urine pH 6.0 Ur Specific [place] 1.015 Urine Protein 30 (1+) H Urine Glucose (UA) Negative Urine Ketones Negative Urine Blood Small (1+) H Urine Nitrite Negative Ur Leukocyte Esterase Negative Urine RBC 0-2 Urine WBC 0-5 Ur Squamous Epith Cells 0-2 Urine Bacteria None Seen Hyaline Casts 6-10 Granular Casts Present Stool Occult Blood Influenza Type A (PCR) Influenza Type B (PCR) RSV RNA Qual (PCR) SARS-CoV-2 RNA (RT-PCR) Blood Type Antibody Screen Crossmatch 10/09/24 10/09/24 10/09/24 06:11 07:44 10:17 WBC RBC Hgb Hct MCV MCH MCHC RDW Plt Count MPV Immature Gran % (Auto) Neut % (Auto) Lymph % (Auto) [place] % (Auto) Eos % (Auto) Baso % (Auto) Lymph # (Auto) [place] # (Auto) Eos # (Auto) Baso # (Auto) Abs Immat Gran (auto) Absolute Neuts (auto) Absolute Nucleated RBC Nucleated RBC % (auto) PT INR Sodium Potassium Chloride Carbon Dioxide Anion Gap BUN Creatinine Estim Creat Clear Calc Estimated GFR Random Glucose Lactic Acid Lactic Acid F/U @ 2Hr 2.7 H* Lactic Acid F/U @ 4Hr 1.3 Calcium Magnesium Total Bilirubin AST ALT Alkaline Phosphatase Troponin I High Sens 83.5 H* Total Protein Albumin Lipase Urine Color Urine Appearance Urine pH Ur Specific [place] Urine Protein Urine Glucose (UA) Urine Ketones Urine Blood Urine Nitrite Ur Leukocyte Esterase Urine RBC Urine WBC Ur Squamous Epith Cells Urine Bacteria Hyaline Casts Granular Casts Stool Occult Blood NEGATIVE Influenza Type A (PCR) NEGATIVE Influenza Type B (PCR) NEGATIVE RSV RNA Qual (PCR) NEGATIVE SARS-CoV-2 RNA (RT-PCR) NEGATIVE Blood Type Antibody Screen Crossmatch 10/09/24 10/10/24 10/10/24 10:40 07:42 09:07 WBC 12.2 H RBC 2.64 L D Hgb 8.8 L 6.9 L* D Hct 26.8 L 21.1 L D MCV 79.9 L MCH 26.1 L MCHC 32.7 RDW 14.4 Plt Count 220 D MPV 10.1 Immature Gran % (Auto) 0.5 H Neut % (Auto) 75.6 H Lymph % (Auto) 13.7 L [place] % (Auto) 9.7 Eos % (Auto) 0.2 Baso % (Auto) 0.3 Lymph # (Auto) 1.7 [place] # (Auto) 1.2 Eos # (Auto) 0.0 Baso # (Auto) 0.0 Abs Immat Gran (auto) 0.06 H Absolute Neuts (auto) 9.2 H Absolute Nucleated RBC 0.000 Nucleated RBC % (auto) 0.0 PT INR Sodium 138 Potassium 2.9 L* Chloride 104 Carbon Dioxide 26 Anion Gap 11 L BUN 25 H Creatinine 0.55 Estim Creat Clear Calc 97.8 Estimated GFR > 60 Random Glucose 102 Lactic Acid Lactic Acid F/U @ 2Hr Lactic Acid F/U @ 4Hr Calcium 7.7 L D Magnesium 1.8 Total Bilirubin AST ALT Alkaline Phosphatase Troponin I High Sens Total Protein Albumin Lipase Urine Color Urine Appearance Urine pH Ur Specific [place] Urine Protein Urine Glucose (UA) Urine Ketones Urine Blood Urine Nitrite Ur Leukocyte Esterase Urine RBC Urine WBC Ur Squamous Epith Cells Urine Bacteria Hyaline Casts Granular Casts Stool Occult Blood Influenza Type A (PCR) Influenza Type B (PCR) RSV RNA Qual (PCR) SARS-CoV-2 RNA (RT-PCR) Blood Type A Positive Antibody Screen NEGATIVE Crossmatch See Detail Airway Mallampati Class: III (Overbite) TM Dist: >3cm Neck ROM: Full Loose/Missing/Broken Teeth: Yes (Missing some teeth back. denies broken or loose teeth) Heart: RRR Lungs: CTAB Assessment and Plan Assessment Anesthesia Assessment: Anesthesia Plan Discussed and Chart Reviewed Final Anesthetic Review Family History of Problems with Anesthesia: No History of Problems with Anesthesia: No NPO: Yes ASA Class: IV and Emergency Final Preanesthetic Review: No Changes in Pt Med Stat, Meds/Allgs Chart Reviewed, Consent Obtained/Reviewed and Anes Risks/Benef Reviewed Patient Risk: High Procedure Risk: Intermediate Assessment/Block/Sedation in SS: Assess/Block/Sedation- Anesthetic Plan Anesthetic Plan: TIVA Disposition: Standard PACU and Inp. Admit - Standard Bed
--- NOTE | 2024-10-10 15:13 | P.PNIM_ITS ---
Subjective Subjective Date of Service: 10/10/24 Interval History: anemia Review of Systems no vomiting has some nausea Physical Exam 2 Vital Signs: Vital Signs: Last Vital Signs Temp 98.2 F 10/10/24 14:00 Pulse 82 10/10/24 14:00 Resp 16 10/10/24 14:00 BP 121/57 L 10/10/24 14:00 Pulse Ox 99 10/10/24 13:37 O2 Del Method Room Air 10/10/24 13:37 BMI result Body Mass Index 32.7 Appearance: Alert.? Oriented X3.? cvs: rrr, [id number]. res: air entry fair. abd: soft,nd ,nt, bs present. ext pulses present , no cyanosis . neuro: axo3 , nonfocal. Objective Data Active Medications Acetaminophen (Acetaminophen 325 Mg Tablet) 650 mg PO Q6H PRN PRN Reason: Pain, Mild 1-3,fever,headache Last Admin: 10/09/24 13:28 Dose: 650 mg Documented By: JOYCE Albuterol Sulfate (Albuterol Sulfate 90 Mcg 8 Gm Inhaler) 2 puff INHALE QID PRN PRN Reason: wheezing Atorvastatin Calcium (Atorvastatin Calcium 10 Mg Tablet) 10 mg PO BEDTIME [facility]S [facility]CLUDE 234 BEDS AT THE [facility] Last Admin: 10/09/24 19:55 Dose: 10 mg Documented By: KADIE Calcium Carbonate (Calcium Carbonate 750 Mg Tab.Chew) 750 mg PO Q4H PRN PRN Reason: Heartburn Calcium Carbonate/Cholecalciferol (Calcium + Vitamin D 250 Mg Tablet) 500 mg PO DAILY [facility]S [facility]CLUDE 234 BEDS AT THE [facility] Last Admin: 10/10/24 08:53 Dose: Not Given Documented By: EFFIE Non-Admin Reason: Physician Held Med Ceftriaxone Sodium (Ceftriaxone Sodium 1 Gm Vial) 1 gm IVPUSH Q24H COUNTS INCLUDE 234 BEDS AT THE [facility] Last Admin: 10/10/24 05:41 Dose: 1 gm Documented By: KADIE Lactated Ringer's (Lr) 1,000 mls @ 100 mls/hr IVCONT .Q10H [facility] Last Admin: 10/10/24 05:41 Dose: 100 mls/hr Documented By: KADIE Metronidazole (Flagyl) 500 mg in 100 mls @ 100 mls/hr IV Q8H COUNTS INCLUDE 234 BEDS AT THE [facility] Last Admin: 10/10/24 12:31 Dose: Not Given Documented By: EFFIE Non-Admin Reason: No Access Lactated Ringer's (Lr) 1,000 mls @ 100 mls/hr IVCONT .Q10H COUNTS INCLUDE 234 BEDS AT THE [facility] Last Admin: 10/10/24 14:35 Dose: 100 mls/hr Documented By: JOSE Magnesium Hydroxide (Milk Of Magnesia 30 Ml Oral.Susp) 30 ml PO DAILY PRN PRN Reason: Constipation Melatonin (Melatonin 3 Mg Tablet) 6 mg PO BEDTIME PRN PRN Reason: Insomnia Pt Own Medication ( Vibegron [Gemtesa] 75 Mg Tablet) 75 mg PO BEDTIME COUNTS INCLUDE 234 BEDS AT THE [facility] Last Admin: 10/09/24 19:56 Dose: 75 mg Documented By: KADIE Ondansetron HCl (Ondansetron Hcl 4 Mg/2 Ml Vial) 4 mg IVPUSH ONCE PRN PRN Reason: Nausea and Vomiting Stop: 10/10/24 20:34 Oxybutynin Chloride (Oxybutynin Chloride Er 5 Mg Tab.Er.24) 15 mg PO BEDTIME COUNTS INCLUDE 234 BEDS AT THE [facility] Last Admin: 10/09/24 19:55 Dose: 15 mg Documented By: KADIE Pantoprazole Sodium (Pantoprazole Sodium 40 Mg/10 Ml Vial) 40 mg IVPUSH BID@0630,1630 COUNTS INCLUDE 234 BEDS AT THE [facility] Last Admin: 10/10/24 05:41 Dose: 40 mg Documented By: KADIE Sodium Chloride (0.9 % Sodium Chloride Flush 3 Ml Syringe) 3 ml IVFLUSH QSHIFT COUNTS INCLUDE 234 BEDS AT THE [facility] Last Admin: 10/10/24 11:53 Dose: Not Given Documented By: EFFIE Non-Admin Reason: IV Running Tizanidine HCl (Tizanidine Hcl 4 Mg Tablet) 4 mg PO TID PRN PRN Reason: Back Pain Last Admin: 10/09/24 13:29 Dose: 4 mg Documented By: JOYCE Vitamin D (Cholecalciferol (Vitamin D3) 25 Mcg Tablet) 50 mcg PO DAILY [facility]S [facility]CLUDE 234 BEDS AT THE [facility] Last Admin: 10/10/24 08:53 Dose: Not Given Documented By: EFFIE Non-Admin Reason: Physician Held Med Labs 10/10/24 07:42 10/10/24 07:42 Labs: Laboratory Results - last 24 hr 10/10/24 10/10/24 07:42 09:07 MCV 79.9 L MCH 26.1 L MCHC 32.7 RDW 14.4 Plt Count 220 D MPV 10.1 Immature Gran % (Auto) 0.5 H Neut % (Auto) 75.6 H Lymph % (Auto) 13.7 L [place] % (Auto) 9.7 Eos % (Auto) 0.2 Baso % (Auto) 0.3 Lymph # (Auto) 1.7 [place] # (Auto) 1.2 Eos # (Auto) 0.0 Baso # (Auto) 0.0 Abs Immat Gran (auto) 0.06 H Absolute Neuts (auto) 9.2 H Absolute Nucleated RBC 0.000 Nucleated RBC % (auto) 0.0 Anion Gap 11 L Estim Creat Clear Calc 97.8 Estimated GFR > 60 Random Glucose 102 Calcium 7.7 L D Magnesium 1.8 Blood Type A Positive Antibody Screen NEGATIVE Crossmatch See Detail Microbiology Microbiology Results: Microbiology 10/09/24 05:33 Blood Culture - Preliminary Blood - Venous No growth after 24 hours. 10/09/24 05:17 Blood Culture - Preliminary Blood - Venous No growth after 24 hours. Assessment and Plan (1) Vomiting: Status: Acute Assessment and Plan: 79-year-old female with history of mild intermittent asthma, osteoporosis, urge incontinence, hypertension, GERD, hyperlipidemia admitted for UGIB with n/v and aspiration pneumonia Acute UGIB with nausea/vomiting and acute blood loss anemia chronic use of celebrex. No thinners. Hold Celebrex stool occult blood negative plan: h/h this morning 6.9/21.1 moniter h/h closely npo ,IV PPI,antiemetics prn,added 2 prbc,GI consult -for possible endoscopy today Acute aspiration with early pneumonia and sepsis: Leukocytosis improving tachycardiaimproved. Lactic acidosis likely related to hypoperfusion from hypo volemia/GI losses. plan: Sputum culture, Legionella antigen, strep pneumo antigen continue IV ceftriaxone and Flagyl,Aspiration precautions Acute lactic acidosis: possible dehydration/hypovolemia resolved with ivf. Acute kidney injury-likely prerenal related to hypoperfusion from hypovolemia Creatinine 1.54, baseline unknown though suspect underlying CKD unspecified stage improving with ivf,Avoid nephrotoxins Monitor I&O Follow renal function, electrolyte levels Acute hypokalemia in setting of above. magnesium 1.8 repleted, follow lytes closely Mild Intermittent asthma: stable. Albuterol p.r.n. Hypertension:boderline bp-Hold losartan, hydrochlorothiazide in setting of DEANNE Blood pressure is currently reasonably controlled. Monitor closely GERD:PPI as above. Urge incontinence:continue Oxybutynin/Gemtesa HLD:continue Statin. DVT prophylaxis- SCds Full code ongong need for management of UGIB requiring expert consultation and close monitoring of hemodyanamics to monitor for and prevent demopensation Quality Stroke Does the patient have a stroke diagnosis?: No VTE Prior VTE?: No VTE Risk Level:: Medical - moderate - high VTE Device Contraindication: N/A - Device Ordered VTE Drug Contraindication: Treatment Not Indicated
--- NOTE | 2024-10-10 15:24 | PM.EVENT ---
Event Note Date of Service: 10/10/24 Event Note: EGD dictated large hiatal hernia, unable to examine duodenum. erosive esophagitis, no bleeding Rec: high dose ppi start clear liquids. Time Spent With Patient Time: Total time managing care of this patient today ____ minutes.
--- NOTE | 2024-10-10 15:40 | OP_ITS ---
DATE OF SERVICE: 10/10/2024 SURGEON: Jony Macdonald MD INDICATIONS: Upper GI bleeding. PREOPERATIVE DIAGNOSIS: POSTOPERATIVE DIAGNOSIS: PROCEDURE PERFORMED: Upper endoscopy. ESTIMATED BLOOD LOSS: COMPLICATIONS: ANESTHESIA: Monitored anesthesia care. ASSISTANTS: SPECIMENS: DESCRIPTION OF PROCEDURE: History and physical performed. The risks and benefits of the procedure were explained to the patient. Informed consent was obtained. The patient was placed in the left lateral decubitus position. The Olympus videogastroscope was introduced into the esophagus and stomach. Examination was performed. The scope was removed. She tolerated the procedure well and was returned to recovery area in stable condition. FINDINGS: Esophagus: There was erosive esophagitis involving the distal 2/3 of the esophagus with no active bleeding. Stomach: There was a large hiatal hernia. The scope was advanced into the stomach to the vicinity of the pylorus, but could not be advanced into the pylorus due to looping in the hiatal hernia. Bile was seen to reflux from the pylorus. No blood was present in the stomach. Duodenum: The duodenum was not examined. IMPRESSION: Erosive esophagitis. RECOMMENDATIONS: 1. High-dose proton pump inhibitor. 2. If she remains symptomatic with difficulty eating, Thoracic Surgery consultation for hiatal hernia evaluation. MD RIGOBERTO Flor/CHELSEAL / [id number]
[2024-10-10] MEDS: 0.9 % Sodium Chloride Flush 3 ML SYRINGE IVFLUSH ×2 (17:22→21:03)
[2024-10-10] MEDS: Atorvastatin Calcium 10 MG TABLET PO (21:00)
[2024-10-10] MEDS: VIBEGRON 75 MG 75 EACH PO (21:03)
[2024-10-11] MEDS: metroNIDAZOLE/NS 500 MG/100 ML PIGGYBACK 100 MG IV ×3 (03:01→16:45)
[2024-10-11 03:30] VITALS: BP 154/65; PULSE 61; RESP 18; TEMP 36.6; O2SAT 96
[2024-10-11] MEDS: cefTRIAXone sodium 1 GM VIAL IVPUSH (06:08)
[2024-10-11] MEDS: Pantoprazole Sodium 40 MG/10 ML VIAL IVPUSH ×2 (06:08→16:45)
[2024-10-11 07:13] VITALS: BP 130/61; PULSE 70; RESP 20; TEMP 36.5; O2SAT 96
[2024-10-11] MEDS: Cholecalciferol (Vitamin D3) 25 MCG TABLET 50 MCG PO (08:40)
[2024-10-11] MEDS: Calcium + Vitamin D 250 MG TABLET 500 MG PO (08:40)
[2024-10-11] MEDS: Lactated Ringers 1,000 ML 100 ML IVCONT ×3 (08:41→20:56)
--- NOTE | 2024-10-11 08:53 | P.PNGI_ITS ---
Subjective Subjective Date of Service: 10/11/24 Critical Care Time (minutes): 0 Physical Exam 2 Vital Signs: Vital Signs: Last Vital Signs Temp 97.7 F 10/11/24 07:13 Pulse 70 10/11/24 07:13 Resp 20 10/11/24 07:13 BP 130/61 10/11/24 07:13 Pulse Ox 96 10/11/24 07:13 O2 Del Method Room Air 10/11/24 07:13 BMI result Body Mass Index 32.7 GI: Other: abdomen is soft and nontender Objective Data Labs 10/10/24 07:42 10/10/24 07:42 Labs: Laboratory Results - last 24 hr 10/10/24 10/10/24 07:42 09:07 Sodium 138 Potassium 2.9 L* Chloride 104 Carbon Dioxide 26 Anion Gap 11 L BUN 25 H Creatinine 0.55 Estim Creat Clear Calc 97.8 Estimated GFR > 60 Random Glucose 102 Calcium 7.7 L D Magnesium 1.8 Blood Type A Positive Antibody Screen NEGATIVE Crossmatch See Detail Microbiology Microbiology Results: Microbiology 10/09/24 05:33 Blood - Venous Blood Culture - Preliminary No growth after 48 hours. 10/09/24 05:17 Blood - Venous Blood Culture - Preliminary No growth after 48 hours. Procedures Date of Service Date of Service: 10/11/24 Progress Note: A&P Assessment and plan (1) Erosive esophagitis: Status: Acute Assessment and Plan: tolerated clears advance diet recheck hct cont bid ppi. Time Spent With Patient Time: Total time managing care of this patient today ____ minutes. Quality Stroke Does the patient have a stroke diagnosis?: No VTE Prior VTE?: No VTE Risk Level:: Medical - moderate - high VTE Device Contraindication: N/A - Device Ordered VTE Drug Contraindication: Treatment Not Indicated
--- NOTE | 2024-10-11 10:12 | HO.POSTANES ---
Post Anesthesia Evaluation Post Anesthesia Evaluation Date of Service: 10/11/24 Vital Signs: Vital Signs Temp Pulse Resp BP Pulse Ox O2 Del Method 10/11/24 07:13 97.7 F 70 20 130/61 96 Room Air 10/11/24 03:30 97.8 F 61 18 154/65 H 96 10/10/24 23:59 94 19 126/61 97 Anesthesia: Monitored Mental Status: Awake Pain Control: Satisfactory Nausea/Vomiting: None Hydration: Adequate Anesthesia-Related Issues: No Anes. Related Issues
[2024-10-11 10:30] LABS: Hematocrit 27.8 % (37.0-47.0); Hemoglobin 9.4 g/dl (12.0-16.0); Mean Corpuscular HGB Conc 33.8 g/dl (31.0-35.0); Mean Corpuscular Hemoglobin 27.8 pg (27.0-33.0); Mean Corpuscular Volume 82.2 fL (80.0-98.0); Mean Platelet Volume 10.2 fL (9.4-12.3); Platelet Count 205 X10*3/uL (160-400); Red Blood Count 3.38 X10*6/uL (4.20-5.50); White Blood Count 9.2 X10*3/uL (4.8-10.8)
[2024-10-11 10:47] LABS: Anion Gap 10 (12-20); Blood Urea Nitrogen 12 mg/dL (9-16); Calcium 7.5 mg/dL (8.4-10.2); Carbon Dioxide 24 mmol/L (22-29); Chloride 105 mmol/L (96-108); Creatinine Clr Calc Pharmacy 94.4; Estimated Glomerular Filt Rate > 60; Glucose Random 110 mg/dL (60-115); Potassium 3.2 mmol/L (3.3-5.1); Sodium 136 mmol/L (135-145)
[2024-10-11 11:07] VITALS: BP 139/66; PULSE 75; RESP 20; TEMP 37.1; O2SAT 96
--- NOTE | 2024-10-11 13:05 | MHC.SL.SWA ---
Speech Pathologist Impression: Adequate oropharyngeal swallow Risk of Aspiration Due to: Hx of esophageal dysphagia (erosive esophagitis) Hx of GERD Hx of hiatal hernia Dysphasia Diet Status: Liquid Consistency and Strategies for Safe Swallow: Liquid Intake Recommendation: Thin Liquid Intake Strategies: Small Sips Solid Food Consistency: Dietary Recommendations: Regular Additional Modifications to Solid Foods: Oral Medication Intake: Whole with Liquid Please contact the pharmacy regarding appropriate crushable or liquid drug formulations that are available whenever modified delivery is recommended. Compensatory Strategies and Precautions to be Taken for Safe Swallow: Sitting Upright (90 deg) Small Bites and Sips Alternate Liquids/Solids Rate of Ingestion Change Supervision While Eating and Drinking for Safe Swallow: None Needed Foods to Avoid: Swallowing Recommended Treatments: Compens. Strategy Educat. Recommendation for Speech: NA:Typical Evaluation Comment: Pt presents with adequate oropharyngeal swallow coordination. No overt s/s of aspiration with any consistencies: thins, purees, regular solids. Pt verbalized understanding of recommended safety strategies (slow pacing, upright positioning, alternating consistencies). No further ST intervention indicated at this time. [facility] available for consultation if indicated. Pt in agreement. Recc regular diet, thin liquids. Frequency/Duration: Date Range for Service Req: Timeline to reassess: Outreach Librarian Clinican/Clinical Fellow: No Supervisory Statement: I have reviewed and agree with the student/clinical fellow's documentation: N/A Speech Language Pathologist: Zuleyma Galloway M.S., [facility]
[2024-10-11 15:19] VITALS: BP 142/66; PULSE 72; RESP 18; TEMP 36.9; O2SAT 97
--- NOTE | 2024-10-11 15:36 | MHC.CM.PN ---
Per rounds, pt. is improving, ST rec no further services, reg. diet. CM received a call from pt.'s brother, he said that pt. is frail, and could use some help at home. JOSE M discussed [facility] with him and he agreed that this would be good for her. Task submitted for their services.
--- NOTE | 2024-10-11 16:36 | HO.PM.IMPN ---
Subjective Subjective Date of Service: 10/11/24 Interval History: Anemia, esophagitis Review of Systems Feel generalized weak H&H improving Still eating very little Review of Systems: Yes all other systems are reviewed and are negative Physical Exam Vital Signs: Vital Signs: Last Vital Signs Temp 98.5 F 10/11/24 15:19 Pulse 72 10/11/24 15:19 Resp 18 10/11/24 15:19 BP 142/66 H 10/11/24 15:19 Pulse Ox 97 10/11/24 15:19 O2 Del Method Room Air 10/11/24 15:19 BMI result Body Mass Index 32.7 Appearance: Alert.? Oriented X3.? cvs: rrr, [id number]. res: air entry fair. abd: soft,nd ,nt, bs present. ext pulses present , no cyanosis . neuro: axo3 , nonfocal. Objective Data Active Medications Acetaminophen (Acetaminophen 325 Mg Tablet) 650 mg PO Q6H PRN PRN Reason: Pain, Mild 1-3,fever,headache Last Admin: 10/09/24 13:28 Dose: 650 mg Documented By: JOYCE Albuterol Sulfate (Albuterol Sulfate 90 Mcg 8 Gm Inhaler) 2 puff INHALE QID PRN PRN Reason: wheezing Atorvastatin Calcium (Atorvastatin Calcium 10 Mg Tablet) 10 mg PO BEDTIME [facility] Last Admin: 10/10/24 21:00 Dose: 10 mg Documented By: ANTOINC Calcium Carbonate (Calcium Carbonate 750 Mg Tab.Chew) 750 mg PO Q4H PRN PRN Reason: Heartburn Calcium Carbonate/Cholecalciferol (Calcium + Vitamin D 250 Mg Tablet) 500 mg PO DAILY [facility] Last Admin: 10/11/24 08:40 Dose: 500 mg Documented By: TICO Ceftriaxone Sodium (Ceftriaxone Sodium 1 Gm Vial) 1 gm IVPUSH Q24H [facility] Last Admin: 10/11/24 06:08 Dose: 1 gm Documented By: ANTOINRimma Metronidazole (Flagyl) 500 mg in 100 mls @ 100 mls/hr IV Q8H [facility] Last Infusion: 10/11/24 09:42 Dose: Infused Documented By: TICO Lactated Ringer's (Lr) 1,000 mls @ 100 mls/hr IVCONT .Q10H [facility] Last Admin: 10/11/24 10:55 Dose: 100 mls/hr Documented By: TICO Magnesium Hydroxide (Milk Of Magnesia 30 Ml Oral.Susp) 30 ml PO DAILY PRN PRN Reason: Constipation Melatonin (Melatonin 3 Mg Tablet) 6 mg PO BEDTIME PRN PRN Reason: Insomnia Pt Own Medication ( Vibegron [Gemtesa] 75 Mg Tablet) 75 mg PO BEDTIME [facility] Last Admin: 10/10/24 21:03 Dose: 75 mg Documented By: ANTOINRimma Oxybutynin Chloride (Oxybutynin Chloride Er 5 Mg Tab.Er.24) 15 mg PO BEDTIME [facility] Last Admin: 10/10/24 21:02 Dose: Not Given Documented By: BEATRICE Non-Admin Reason: Patient Refused Pantoprazole Sodium (Pantoprazole Sodium 40 Mg/10 Ml Vial) 40 mg IVPUSH BID@0630,1630 [facility] Last Admin: 10/11/24 06:08 Dose: 40 mg Documented By: ANTOINRimma Sodium Chloride (0.9 % Sodium Chloride Flush 3 Ml Syringe) 3 ml IVFLUSH QSHIFT [facility] Last Admin: 10/11/24 08:40 Dose: Not Given Documented By: TICO Non-Admin Reason: IV Running Tizanidine HCl (Tizanidine Hcl 4 Mg Tablet) 4 mg PO TID PRN PRN Reason: Back Pain Last Admin: 10/09/24 13:29 Dose: 4 mg Documented By: JOYCE Vitamin D (Cholecalciferol (Vitamin D3) 25 Mcg Tablet) 50 mcg PO DAILY [facility] Last Admin: 10/11/24 08:40 Dose: 50 mcg Documented By: TICO Labs 10/11/24 10:06 10/11/24 10:06 Labs: Laboratory Results - last 24 hr 10/10/24 10/10/24 10/11/24 07:42 09:07 10:06 MCV 82.2 MCH 27.8 MCHC 33.8 RDW 15.0 Plt Count 205 MPV 10.2 Absolute Nucleated RBC 0.000 Nucleated RBC % (auto) 0.0 Smear Path Review SEE NOTE Anion Gap 10 L Estim Creat Clear Calc 94.4 Estimated GFR > 60 Random Glucose 110 Calcium 7.5 L Blood Type A Positive Antibody Screen NEGATIVE Crossmatch See Detail Microbiology Microbiology Results: Microbiology 10/09/24 05:33 Blood Culture - Preliminary Blood - Venous No growth after 48 hours. 10/09/24 05:17 Blood Culture - Preliminary Blood - Venous No growth after 48 hours. Assessment and Plan (1) Erosive esophagitis: Status: Acute Plan 79-year-old female with history of mild intermittent asthma, osteoporosis, urge incontinence, hypertension, GERD, hyperlipidemia admitted for UGIB with n/v and aspiration pneumonia Acute UGIB with nausea/vomiting and acute blood loss anemia chronic use of celebrex. No thinners. Hold Celebrex stool occult blood negative plan: s/p 2 prbc h/h:9.4/27.8 moniter h/h closely eating very little ,IV PPI,antiemetics prn,GI consult -esophagitis ,also speech eval for ? swallow difficulty Acute aspiration with early pneumonia and sepsis: Leukocytosis improving tachycardiaimproved. Lactic acidosis likely related to hypoperfusion from hypo volemia/GI losses. plan: blood cultures negative@48hrs Sputum culture, Legionella antigen, strep pneumo antigen continue IV ceftriaxone and Flagyl,Aspiration precautions Acute lactic acidosis: possible dehydration/hypovolemia resolved with ivf. Acute kidney injury-likely prerenal related to hypoperfusion from hypovolemia Creatinine 1.54, baseline unknown though suspect underlying CKD unspecified stage improving with ivf,Avoid nephrotoxins Monitor I&O Follow renal function, electrolyte levels Acute hypokalemia: still low in setting of above. will add iv patssium magnesium 1.8 repleted, follow lytes closely Mild Intermittent asthma: stable. Albuterol p.r.n. Hypertension:boderline bp-Hold losartan, hydrochlorothiazide in setting of DEANNE Blood pressure is currently reasonably controlled. Monitor closely GERD:PPI as above. Urge incontinence:continue Oxybutynin/Gemtesa HLD:continue Statin. DVT prophylaxis- SCds Full code ongong need for management of UGIB requiring expert consultation and close monitoring of hemodyanamics as well as electrolytes/renal function moniter ,speech and Pt eval as well as sepsis with pneumonia -need iv antibiotics. Quality Stroke Does the patient have a stroke diagnosis?: No VTE Prior VTE?: No VTE Risk Level:: Medical - moderate - high VTE Device Contraindication: N/A - Device Ordered VTE Drug Contraindication: Treatment Not Indicated
[2024-10-11] MEDS: 0.9 % Sodium Chloride Flush 3 ML SYRINGE IVFLUSH ×2 (16:45→20:32)
[2024-10-11] MEDS: Potassium Chloride/H20 10 MEQ/100 ML PIGGYBACK 100 MEQ IV ×2 (16:53→17:43)
[2024-10-11] MEDS: Acetaminophen 325 MG TABLET 650 MG PO ×2 (17:41→23:27)
[2024-10-11 19:53] VITALS: BP 139/64; PULSE 75; RESP 19; TEMP 36.2; O2SAT 96
[2024-10-11] MEDS: oxyBUTYnin chloride ER 5 MG TAB.ER.24 15 MG PO (20:30)
[2024-10-11] MEDS: VIBEGRON 75 MG 75 EACH PO (20:32)
[2024-10-11] MEDS: Atorvastatin Calcium 10 MG TABLET PO (20:32)
[2024-10-11 23:24] VITALS: BP 148/65; PULSE 79; RESP 19; O2SAT 96
[2024-10-12] MEDS: metroNIDAZOLE/NS 500 MG/100 ML PIGGYBACK 100 MG IV ×3 (02:36→17:21)
[2024-10-12 03:41] VITALS: BP 159/70; PULSE 85; RESP 19; O2SAT 97
[2024-10-12] MEDS: cefTRIAXone sodium 1 GM VIAL IVPUSH (06:04)
[2024-10-12] MEDS: Pantoprazole Sodium 40 MG/10 ML VIAL IVPUSH (06:04)
[2024-10-12 08:00] VITALS: BP 137/85; PULSE 81; RESP 20; TEMP 36.6; O2SAT 97
[2024-10-12] MEDS: Potassium Chloride ER 20 MEQ TAB.ER.PRT PO (09:23)
[2024-10-12] MEDS: 0.9 % Sodium Chloride Flush 3 ML SYRINGE IVFLUSH ×3 (09:24→22:04)
[2024-10-12] MEDS: Calcium + Vitamin D 250 MG TABLET 500 MG PO (09:24)
[2024-10-12] MEDS: Cholecalciferol (Vitamin D3) 25 MCG TABLET 50 MCG PO (09:24)
[2024-10-12 10:39] LABS: Hematocrit 28.4 % (37.0-47.0); Hemoglobin 9.6 g/dl (12.0-16.0)
[2024-10-12 11:00] LABS: Anion Gap 10 (12-20); Blood Urea Nitrogen 6 mg/dL (9-16); Calcium 7.6 mg/dL (8.4-10.2); Carbon Dioxide 24 mmol/L (22-29); Chloride 104 mmol/L (96-108); Creatinine Clr Calc Pharmacy 99.6; Estimated Glomerular Filt Rate > 60; Glucose Random 142 mg/dL (60-115); Potassium 3.3 mmol/L (3.3-5.1); Sodium 135 mmol/L (135-145)
[2024-10-12 11:45] VITALS: BP 160/76; PULSE 75; RESP 20; TEMP 36.7; O2SAT 97
[2024-10-12 16:00] VITALS: BP 149/80; PULSE 81; RESP 16; TEMP 36.9; O2SAT 98
--- NOTE | 2024-10-12 16:47 | P.PNIM_ITS ---
Subjective Subjective Date of Service: 10/13/24 Interval History: anemia Review of Systems no new c/o generalised weakness Review of Systems: Yes all other systems are reviewed and are negative Physical Exam 2 Vital Signs: Vital Signs: Last Vital Signs Temp 98.4 F 10/12/24 16:00 Pulse 81 10/12/24 16:00 Resp 16 10/12/24 16:00 BP 149/80 H 10/12/24 16:00 Pulse Ox 98 10/12/24 16:00 O2 Del Method Room Air 10/12/24 16:00 BMI result Body Mass Index 32.7 Appearance: Alert.? Oriented X3.? cvs: rrr, [id number]. res: air entry fair. abd: soft,nd ,nt, bs present. ext pulses present , no cyanosis . neuro: axo3 , nonfocal. Objective Data Active Medications Acetaminophen (Acetaminophen 325 Mg Tablet) 650 mg PO Q6H PRN PRN Reason: Pain, Mild 1-3,fever,headache Last Admin: 10/11/24 23:27 Dose: 650 mg Documented By: ANTOINC Albuterol Sulfate (Albuterol Sulfate 90 Mcg 8 Gm Inhaler) 2 puff INHALE QID PRN PRN Reason: wheezing Atorvastatin Calcium (Atorvastatin Calcium 10 Mg Tablet) 10 mg PO BEDTIME [facility] Last Admin: 10/11/24 20:32 Dose: 10 mg Documented By: ANTOINC Calcium Carbonate (Calcium Carbonate 750 Mg Tab.Chew) 750 mg PO Q4H PRN PRN Reason: Heartburn Calcium Carbonate/Cholecalciferol (Calcium + Vitamin D 250 Mg Tablet) 500 mg PO DAILY [facility] Last Admin: 10/12/24 09:24 Dose: 500 mg Documented By: TICO Ceftriaxone Sodium (Ceftriaxone Sodium 1 Gm Vial) 1 gm IVPUSH Q24H [facility] Last Admin: 10/12/24 06:04 Dose: 1 gm Documented By: ANTOINC Metronidazole (Flagyl) 500 mg in 100 mls @ 100 mls/hr IV Q8H [facility] Last Infusion: 10/12/24 10:28 Dose: Infused Documented By: TICO Magnesium Hydroxide (Milk Of Magnesia 30 Ml Oral.Susp) 30 ml PO DAILY PRN PRN Reason: Constipation Melatonin (Melatonin 3 Mg Tablet) 6 mg PO BEDTIME PRN PRN Reason: Insomnia Pt Own Medication ( Vibegron [Gemtesa] 75 Mg Tablet) 75 mg PO BEDTIME [facility] Last Admin: 10/11/24 20:32 Dose: 75 mg Documented By: ANTOINC Oxybutynin Chloride (Oxybutynin Chloride Er 5 Mg Tab.Er.24) 15 mg PO BEDTIME [facility] Last Admin: 10/11/24 20:30 Dose: 15 mg Documented By: RAMESHOINRimma Sodium Chloride (0.9 % Sodium Chloride Flush 3 Ml Syringe) 3 ml IVFLUSH QSHIFT [facility] Last Admin: 10/12/24 09:24 Dose: 3 ml Documented By: TICO Tizanidine HCl (Tizanidine Hcl 4 Mg Tablet) 4 mg PO TID PRN PRN Reason: Back Pain Last Admin: 10/09/24 13:29 Dose: 4 mg Documented By: JOYCE Vitamin D (Cholecalciferol (Vitamin D3) 25 Mcg Tablet) 50 mcg PO DAILY [facility] Last Admin: 10/12/24 09:24 Dose: 50 mcg Documented By: TICO Labs 10/12/24 10:13 10/12/24 10:13 Labs: Laboratory Results - last 24 hr 10/12/24 10:13 Anion Gap 10 L Estim Creat Clear Calc 99.6 Estimated GFR > 60 Random Glucose 142 H Calcium 7.6 L Assessment and Plan (1) Erosive esophagitis: Status: Acute Assessment and Plan: 79-year-old female with history of mild intermittent asthma, osteoporosis, urge incontinence, hypertension, GERD, hyperlipidemia admitted for UGIB with n/v and aspiration pneumonia Acute UGIB with nausea/vomiting and acute blood loss anemia chronic use of celebrex. No thinners. Hold Celebrex stool occult blood negative plan: s/p 2 prbc h/h:9.4/27.8 moniter h/h closely eating beter ,switch to poppi,antiemetics prn,GI consult -esophagitis ,also speech eval for ? swallow difficulty Acute aspiration with early pneumonia and sepsis: Leukocytosis improving tachycardiaimproved. Lactic acidosis likely related to hypoperfusion from hypo volemia/GI losses. plan: blood cultures negative@48hrs Sputum culture, Legionella antigen, strep pneumo antigen continue IV ceftriaxone and Flagyl,Aspiration precautions will switch to po antibiotics Acute lactic acidosis: possible dehydration/hypovolemia resolved with ivf. Acute kidney injury-likely prerenal related to hypoperfusion from hypovolemia Creatinine 1.54, baseline unknown though suspect underlying CKD unspecified stage improving with ivf,Avoid nephrotoxins Monitor I&O Follow renal function, electrolyte levels Acute hypokalemia: still low in setting of above. will add iv patssium magnesium 1.8 repleted, follow lytes closely Mild Intermittent asthma: stable. Albuterol p.r.n. Hypertension:boderline bp-Hold losartan, hydrochlorothiazide in setting of DEANNE Blood pressure is currently reasonably controlled. Monitor closely GERD:PPI as above. Urge incontinence:continue Oxybutynin/Gemtesa HLD:continue Statin. DVT prophylaxis- SCds Full code ongong need : awaiting placement Quality Stroke Does the patient have a stroke diagnosis?: No VTE Prior VTE?: No VTE Risk Level:: Medical - moderate - high VTE Device Contraindication: N/A - Device Ordered VTE Drug Contraindication: Treatment Not Indicated
[2024-10-12 17:11] LABS: Albumin Level 3.1 g/dL (3.5-5.0)
[2024-10-12 19:57] VITALS: BP 161/65; PULSE 75; RESP 14; TEMP 37; O2SAT 98
--- NOTE | 2024-10-12 20:53 | P.PNGI_ITS ---
Subjective Subjective Date of Service: 10/12/24 Interval History: She has had no vomiting tolerating diet, reports anorexia Critical Care Time (minutes): 0 Physical Exam 2 Vital Signs: Vital Signs: Last Vital Signs Temp 98.6 F 10/12/24 19:57 Pulse 75 10/12/24 19:57 Resp 14 10/12/24 19:57 BP 161/65 H 10/12/24 19:57 Pulse Ox 98 10/12/24 19:57 O2 Del Method Room Air 10/12/24 19:57 BMI result Body Mass Index 32.7 GI: Other: abdomen is soft and nontender Objective Data Labs 10/12/24 10:13 10/12/24 10:13 Labs: Laboratory Results - last 24 hr 10/12/24 10:13 Hgb 9.6 L Hct 28.4 L Sodium 135 Potassium 3.3 Chloride 104 Carbon Dioxide 24 Anion Gap 10 L BUN 6 L Creatinine 0.54 Estim Creat Clear Calc 99.6 Estimated GFR > 60 Random Glucose 142 H Calcium 7.6 L Albumin 3.1 L Microbiology Microbiology Results: Microbiology 10/09/24 05:33 Blood - Venous Blood Culture - Preliminary No growth after 48 hours. 10/09/24 05:17 Blood - Venous Blood Culture - Preliminary No growth after 48 hours. Procedures Date of Service Date of Service: 10/12/24 Progress Note: A&P Assessment and plan (1) Erosive esophagitis: Status: Acute Assessment and Plan: labs and nursing data are reviewed diet encouraged. continue bid ppi, po as outpt. hiatal hernia is stable and repair at this time would be difficult and risky given her underlying comorbid conditions. Time Spent With Patient Time: Total time managing care of this patient today ____ minutes. Quality Stroke Does the patient have a stroke diagnosis?: No VTE Prior VTE?: No VTE Risk Level:: Medical - moderate - high VTE Device Contraindication: N/A - Device Ordered VTE Drug Contraindication: Treatment Not Indicated
[2024-10-12] MEDS: Acetaminophen 325 MG TABLET 650 MG PO (22:03)
[2024-10-12] MEDS: Melatonin 3 MG TABLET 6 MG PO (22:03)
[2024-10-12] MEDS: Atorvastatin Calcium 10 MG TABLET PO (22:03)
[2024-10-12] MEDS: oxyBUTYnin chloride ER 5 MG TAB.ER.24 15 MG PO (22:03)
[2024-10-12] MEDS: VIBEGRON 75 MG 75 EACH PO (22:03)
[2024-10-13] VITALS: BP 131/75; PULSE 103; RESP 21; TEMP 36.6; O2SAT 95
[2024-10-13] MEDS: metroNIDAZOLE/NS 500 MG/100 ML PIGGYBACK 100 MG IV ×2 (03:01→08:58)
[2024-10-13 04:00] VITALS: BP 137/68; PULSE 65; RESP 16; TEMP 36.9; O2SAT 97
[2024-10-13] MEDS: cefTRIAXone sodium 1 GM VIAL IVPUSH (06:00)
[2024-10-13] MEDS: 0.9 % Sodium Chloride Flush 3 ML SYRINGE IVFLUSH (06:01)
[2024-10-13 08:00] VITALS: BP 164/78; PULSE 71; RESP 20; TEMP 37.2; O2SAT 97
--- NOTE | 2024-10-13 08:59 | P.CDIM_ITS ---
PROVIDER RESPONSE TEXT: To clarify, the appropriate diagnosis supported by the clinical indicators: Other (explain): when corrected for hypoalbuminema -calcium is near normal QUERY TEXT: PHYSICIAN'S DOCUMENTATION REQUEST Date of Query: 10/12/2024 08:49 AM EDT Patient Name: Leila Avila Admit Date: 10/09/2024 Dear Jasmyne Vicente MD, A review of the medical record indicates additional documentation may be needed. Please review below and update the documentation accordingly. Clinical Indicators: LABS: calcium 7.5 L Calcium carbonate Based on the above, is there a diagnosis that correlates with the findings above? Hypocalcemia resolved, possible, suspected etc. Labs indicate a diagnosis of (please specify) Other (explain) Clinically unable to determine (explain) Thank you, Merlene Clark, CCS, CDIS Use of terms such as suspected, likely, concern for, or probable (associated with a specific diagnosi s that is being evaluated, monitored, or treated as if it exists) are acceptable and can be coded in the inpatient se tting, when documented at the time of discharge. Please use your independent medical judgment in providing your response. THIS QUERY IS PART OF THE PERMANENT MEDICAL RECORD
[2024-10-13] MEDS: Cholecalciferol (Vitamin D3) 25 MCG TABLET 50 MCG PO (09:05)
[2024-10-13] MEDS: Acetaminophen 325 MG TABLET 975 MG PO (09:05)
[2024-10-13] MEDS: Calcium + Vitamin D 250 MG TABLET 500 MG PO (09:05)
--- NOTE | 2024-10-13 10:48 | P.DS_ITS ---
DS: Providers Provider Date of Service: 10/13/24 Date of admission: 10/09/24 10:15 Date of discharge: 10/13/24 Primary care physician: Gretta Galloway MD Consults: 10/09/24 10:15 Consult to Gastroenterology Routine Consulting Provider: Giancarlo Dominguez Reason for consultation: ugib Attending physician on discharge: Jasmyne Vicente Discharging clinician: Jasmyne Vicente DS: Diagnosis Discharge Diagnosis (1) Erosive esophagitis: Status: Acute DS: Summary Hospital Course Hospital Course: HPI:79-year-old female with history of mild intermittent asthma, osteoporosis, urge incontinence, hypertension, GERD, hyperlipidemia presented to the ED with nausea, vomiting ongoing since yesterday. Her niece, Tawnya, is present at bedside who reports the vomitus was dark brown with coffee-ground appearance. No bright red blood. She denies any fevers, chills at home. No abdominal pain, diarrhea, constipation, melena, hematochezia. No urinary symptoms. She is noted to have a dry cough on exam which he states has not been persistent and feels this is related to dry throat. Since arrival, she has had a low-grade temperature of 100.2 degrees and has been tachycardic to 104 and intermittently tachypneic. She has leukocytosis of 22.4 H/H 10.1/29.7. Creatinine 1.54, baseline unknown, BUN 70. Potassium 3.1, chloride 92, initial lactic acid 3.4, repeat 2.7. Initial troponin 86.8, repeat 83.5. Urinalysis not indicative of infection. Negative for COVID, flu, RSV. CXR shows a large hiatal hernia but no focal airspace opacity. CT of the abdomen pelvis shows a T10 vertebral body compression fracture, acuity indeterminate. In the ED, has received IV NS, 80 mg IV ppi, IV Tylenol, 1 g ceftriaxone, ondansetron, and 40 mEq IV potassium. Hospital course: 79-year-old female with history of mild intermittent asthma, osteoporosis, urge incontinence, hypertension, GERD, hyperlipidemia admitted for UGIB with n/v and aspiration pneumonia: Patient was admitted for possible upper GI bleed with nausea vomiting-patient's Celebrex stopped, H&H monitor also received 2 PRBC: Patient H&H improved to stable 9-9.6 range, patient also seen by GI and EGD was done:continue bid ppi, po as outpt.hiatal hernia is stable and repair at this time would be difficult and risky given her underlying comorbid conditions. avoid nsaid's or anticoagulants or any blood thinners -further use after seeing GI outpatient. Acute aspiration with early pneumonia and sepsis:started on iv antibiotics , blood cultures sent : Leukocytosis improving,tachycardia improved. acute Lactic acidosis likely related to hypoperfusion from hypo volemia/GI losses-resolved with hydration. patient is asymptomatic -no fever or cough or sob now. Patient blood culture negative at 48 hour, switched to p.o. Ceftin and Flagyl upon discharge for 5 more days patient already received 5 days of iv antibiotics. seen by speech and swallow:diet regular solid/thin liquid. Acute kidney injury-likely prerenal related to hypoperfusion from hypovolemia:Creatinine 1.54, baseline unknown though suspect underlying CKD unspecified stage improving with ivf,Avoid nephrotoxins Monitor I&O Follow renal function, electrolyte levels Acute hypokalemia: repleted and resolved ,added potassium 10 meq po dialy for 1 week limited supply -moniter bmp closely. htn : flactuating: start hctz , introduce Losartan if needed for bp once repeat bmp. plan: complete ceftin 500 mg po bid x5 days and flagyl 500 mg po tid x5 days. Potassium 10 mEq daily and magnesium 250 mg daily for 1 week. omeprazole 40 mg po bid until sees GI. htn : flactuating: start hctz , introduce Losartan if needed for bp once repeat bmp. moniter cbc and bmp in 1 week. patient will need to follow up with pcp and GI. Assessment and plan coordination time spent 40 minute, discussed with the patient in detail length she understand and in agreement with the plan Time Attestation Total time managing care of this patient today: 40 mintues. Discharge Coordination Time (in mins): 40min Quality: Safe Use of Opioids Does Pt have an Active Cancer Diagnosis on the Problem List?: No Quality: Stroke Does the patient have a stroke diagnosis?: No Physical Exam Vital Signs: Vital Signs: Last Vital Signs Temp 98.9 F 10/13/24 08:00 Pulse 71 10/13/24 08:00 Resp 20 10/13/24 08:00 BP 164/78 H 10/13/24 08:00 Pulse Ox 97 10/13/24 08:00 O2 Del Method Room Air 10/13/24 08:00 BMI result Body Mass Index 32.7 Appearance: Alert.? Oriented X3.? cvs: rrr, [id number]. res: air entry fair. abd: soft,nd ,nt, bs present. ext pulses present , no cyanosis . neuro: axo3 , nonfocal. DS: Data Data Completed and Pending Labs on day of discharge: Laboratory Results - last 24 hr 10/12/24 10:13 Sodium 135 Potassium 3.3 Chloride 104 Carbon Dioxide 24 Anion Gap 10 L BUN 6 L Creatinine 0.54 Estim Creat Clear Calc 99.6 Estimated GFR > 60 Random Glucose 142 H Calcium 7.6 L Albumin 3.1 L Preliminary micro results at discharge 10/09/24 05:33 Blood Culture - Preliminary Blood - Venous No growth after 48 hours. 10/09/24 05:17 Blood Culture - Preliminary Blood - Venous No growth after 48 hours. Imaging Chest x-ray: Radiologist's impression: ITS Impressions Chest X-Ray 10/09/24 06:58 IMPRESSION: Large hiatal hernia. No focal airspace opacity is identified. Electronically signed by: Giancarlo Johnson MD 10/09/2024 08:02 AM EDT RP Discharge Plan Discharge Anticipated Discharge Date/Time: 10/12/24 12:48 Patient Disposition: Xfer SNF Discharge Diagnosis: GIB, aspirational pneumonia Referrals: [facility] [Outside] - 1 Week Gretta Galloway MD [Primary Care Provider] - 1 Week Discharge Medications: New metronidazole 500 mg Tablet 500 mg PO Q8H Qty: 15 0RF cefuroxime axetil 500 mg Tablet 500 mg PO Q12H Qty: 10 0RF potassium chloride 10 mEq capsule, extended release 10 meq PO DAILY Qty: 7 0RF magnesium 250 mg tablet 250 mg PO DAILY Qty: 7 0RF Continued tizanidine 4 mg Tablet 4 mg PO TID PRN (Reason: Back Pain) albuterol sulfate 90 mcg/actuation HFA aerosol inhaler 2 puff INHALATION QID PRN (Reason: wheezing) Gemtesa 75 mg Tablet 75 mg PO BEDTIME oxybutynin chloride 15 mg Tablet Extended Release 24hr 15 mg PO BEDTIME losartan 50 mg Tablet 50 mg PO DAILY simvastatin 20 mg Tablet 20 mg PO BEDTIME omeprazole 20 mg Capsule,Delayed Release(Dr/Ec) 20 mg PO DAILY@0630 calcium carbonate-vitamin D3 600 mg-5 mcg (200 unit) Tablet 1 tab PO DAILY cholecalciferol (vitamin D3) [Vitamin D3] 50 mcg (2,000 unit) Tablet 50 mcg PO DAILY glucosamine sulfate 750 mg Tablet 1,500 mg PO DAILY Rx Instructions: administer with a meal multivitamin Tablet 1 tab PO DAILY psyllium Packet 1 packet PO DAILY Rx Instructions: mix into at least 8 oz of water or juice before administering hydrochlorothiazide 25 mg Tablet 25 mg PO DAILY Discontinued celecoxib [Celebrex] 100 mg Capsule 100 mg PO BID Discharge Orders: Discharge Order (Routine); Ordered 10/13/24 Ordered By: Jasmyne Vicente Diet: Advance to usual diet Activity on Discharge: As tolerated Stand Alone Forms: Patient Portal Discharge page Print Language: Maltese Care Plan Goals: 79-year-old female with history of mild intermittent asthma, osteoporosis, urge incontinence, hypertension, GERD, hyperlipidemia admitted for UGIB with n/v and aspiration pneumonia: Patient was admitted for possible upper GI bleed with nausea vomiting-patient's Celebrex stopped, H&H monitor also received 2 PRBC: Patient H&H improved to stable 9-9.6 range, patient also seen by GI and EGD was done:continue bid ppi, po as outpt.hiatal hernia is stable and repair at this time would be difficult and risky given her underlying comorbid conditions. avoid nsaid's or anticoagulants or any blood thinners -further use after seeing GI outpatient. Acute aspiration with early pneumonia and sepsis:started on iv antibiotics , blood cultures sent : Leukocytosis improving,tachycardia improved. acute Lactic acidosis likely related to hypoperfusion from hypo volemia/GI lo sses-resolved with hydration. patient is asymptomatic -no fever or cough or sob now. Patient blood culture negative at 48 hour, switched to p.o. Ceftin and Flagyl upon discharge for 5 more days patient already received 5 days of iv antibiotics. seen by speech and swallow:diet regular solid/thin liquid. Acute kidney injury-likely prerenal related to hypoperfusion from hypovolemia:Creatinine 1.54, baseline unknown though suspect underlying CKD unspecified stage improving with ivf,Avoid nephrotoxins Monitor I&O Follow renal function, electrolyte levels Acute hypokalemia: repleted and resolved ,added potassium 10 meq po dialy for 1 week limited supply -moniter bmp closely. Calcium levels are near normal when corrected for albumin. htn : flactuating: start hctz , introduce Losartan if needed for bp once repeat bmp. Health Concerns: complete ceftin 500 mg po bid x5 days and flagyl 500 mg po tid x5 days. Please repeat chest imaging in 3-4 weeks to see resolution of pneumonia. Potassium 10 mEq daily and magnesium 250 mg daily for 1 week. omeprazole 40 mg po bid until sees GI. htn : flactuating: start hctz , introduce Losartan if needed for bp once repeat bmp. moniter cbc and bmp in 1 week. patient will need to follow up with pcp and GI. Above management discussed with the patient and her healthcare proxy in detail length. They both understand and in agreement with the above plan. Time spent 40 minute. Nursing staff was present during the conversation. Plan of Treatment: as above. Assessment: as above.
--- NOTE | 2024-10-13 11:17 | MHC.CM.PN ---
Pt has been medically cleared for DC, She will go to STR at [facility] via BLS today.
[2024-10-13] MEDS: cefuroxime axetiL 500 MG TABLET PO (11:42)
[2024-10-13 12:00] VITALS: BP 137/70; PULSE 84; RESP 20; TEMP 37.1; O2SAT 96
== END 2024-10-13 15:16 | disposition skilled nursing facility (03) | DRG 177 ==
LOC: HO.ED 08:19 → HO.EDOVER 10:23 → HO.IMC 11:20
PROVIDERS: Internal Medicine; Internal Medicine Gastroenterology; Admitting Provider Physician Assistant; Emergency Provider Emergency Medicine; PCP Internal Medicine; Visit Provider Internal Medicine
PROC: 0DJ08ZZ Inspection of Upper Intestinal Tract, Via Natural or Artificial Opening Endoscopic (ICD-10-PCS; CPT 43235; principal; 2024-10-10 14:40)
DX: J69.0 Pneumonitis due to inhalation of food and vomit (principal); K22.11 Ulcer of esophagus with bleeding; D62 Acute posthemorrhagic anemia; E87.21 Acute metabolic acidosis; N17.9 Acute kidney failure, unspecified; E88.09 Other disorders of plasma-protein metabolism, not elsewhere classified; I12.9 Hypertensive chronic kidney disease with stage 1 through stage 4 chronic kidney disease, or unspecified chronic kidney disease; N18.9 Chronic kidney disease, unspecified; E86.0 Dehydration; K44.9 Diaphragmatic hernia without obstruction or gangrene; N39.41 Urge incontinence; E78.5 Hyperlipidemia, unspecified; K21.9 Gastro-esophageal reflux disease without esophagitis; E87.6 Hypokalemia; J45.20 Mild intermittent asthma, uncomplicated; E86.1 Hypovolemia; Z20.822 Contact with and (suspected) exposure to COVID-19; Z79.899 Other long term (current) drug therapy
CPT/HCPCS: 0241U; 36415; 71045; 74176; 80048; 80053; 81001; 82040; 82272; 83605; 83690; 83735; 84484; 85014; 85018; 85025; 85027; 85610; 86850; 86900; 86901; 86923; 87040; 92610; 93005; 97162; 99285; J0131; J0696; J1836; J2003; J2405; J2470; J2704; J3480; J7120; P9016

== ENCOUNTER → 2024-10-09 04:48 | Outpatient (BNV) | payer OTHER, SELFPAY | PROVIDERS: Emergency Provider Emergency Medicine; PCP Internal Medicine; Visit Provider Internal Medicine Cardiovascular Disease | DX: R00.0 Tachycardia, unspecified (principal) | CPT/HCPCS: 93010 ==

== ENCOUNTER → 2024-10-09 05:14 | Outpatient (BNV) | payer OTHER, SELFPAY | PROVIDERS: Emergency Provider Emergency Medicine; PCP Internal Medicine; Visit Provider Specialist | DX: S22.070A Wedge compression fracture of T9-T10 vertebra, initial encounter for closed fracture (principal); K44.9 Diaphragmatic hernia without obstruction or gangrene | CPT/HCPCS: 71045; 74176 ==

== ENCOUNTER → 2024-10-09 10:15 | Outpatient (BNV) | payer OTHER, SELFPAY | PROVIDERS: Admitting Provider Physician Assistant; Emergency Provider Emergency Medicine; PCP Internal Medicine; Visit Provider Internal Medicine | DX: K22.10 Ulcer of esophagus without bleeding (principal) | CPT/HCPCS: 99223; 99231; 99232; 99239 ==